=== PATIENT | female | born 1950 ===

== ENCOUNTER 2024-01-18 17:48 | Inpatient (IN) | payer MEDICARE, SELFPAY ==
[2024-01-18] VITALS (45 sets, daily range): BP systolic 62–155; BP diastolic 53–78; PULSE 75–111; RESP 17–29; TEMP 37.6–38.5; O2SAT 97–100; BMI 26.8
--- NOTE | ~2024-01-18 | XR_ITS ---
EXAMINATION: XR chest 1V portable Exam Date/Time: 01/18/2024 18:10 PHYSICIAN OFFICE NURSE HISTORY: shortness of breath Comparison: 10/10/2005. RESULT: Lines, tubes, and devices: Implanted device over the right hilum possibly representing vascular occl usion or bronchial occlusion devices. Lungs and pleura: Volume loss and hilar retraction on the right. Marked right apical pleural thicken ing. Minimal left apical pleural thickening. Patchy groundglass and reticular nodular right mid and l ower lung opacities. Senescent/emphysematous change. Bilateral costophrenic angle blunting. Cardiomediastinal silhouette: Stable. Other: No acute osseous or upper abdominal finding. IMPRESSION: Right mid and lower lung opacities, may represent infection in the appropriate clinical context. Small bilateral pleural effusions versus chronic pleural blunting. Reviewed, dictated and finalized at location [facility]. [facility] OFFICE NURSE
--- NOTE | 2024-01-18 17:56 | PC.NURSE ---
Nasal trumpet removed by RT.
--- NOTE | 2024-01-18 18:05 | ECG_ITS ---
Test Date: 2024-01-18 18:05:35 Measurements Intervals [place] Rate: 105 P: 63 MI: 118 QRS: 92 QRSD: 91 T: 48 QT: 375 QTc: 496 Interpretive Statements SINUS TACHYCARDIA RIGHT AXIS DEVIATION LOW QRS VOLTAGE IN PRECORDIAL LEADS BORDERLINE ST ABNORMALITY- INF/LAT LEADS BASELINE ARTIFACT- I, II, III, AVR, AVL, AVF, V1-V6 ABNORMAL ECG No previous ECG available for comparison Electronically Signed On 01-19-2024 06:55:17 [employer] by Librado Driscoll D.O.
[2024-01-18 18:24] LABS: Basophils Absolute Auto 0.1 K/mm3 (0.0-0.1); Basophils Percent Auto 0.4 % (0.2-1.2); Eosinophils Percent Auto 0.1 % (0-4.4); Hematocrit 42.7 % (37.0-47.0); Hemoglobin 13.1 g/dL (12.0-15.0); Immature Granulocyte Absolute 0.26 K/mm3 (0.00-0.031); Immature Granulocyte Percent A 1.3 % (0-0.5); Lymphocytes Absolute Auto 2.88 K/mm3 (0.9-3.2); Lymphocytes Percent Auto 14.4 % (18.3-44.2); Mean Corpuscular HGB Conc 30.7 g/dl (32-36); Mean Corpuscular Hemoglobin 32.5 pg (26-34); Mean Platelet Volume 11.4 fl (7.4-10.4); Monocytes Absolute Auto 2.1 K/mm3 (0.1-0.6); Monocytes Percent Auto 10.3 % (2.6-8.5); Neutrophils Absolute Auto 14.8 K/mm3 (1.3-6.7); Neutrophils Percent Auto 73.5 % (45.5-73.1); Platelet Count Result 200 k/mm3 (150-375); Red Blood Count 4.03 M/mm3 (4.2-5.4); Red Cell Distribution Width 12.2 % (11.5-14.5); White Blood Count 20.1 K/mm3 (4.5-10.0)
[2024-01-18 18:34] LABS: Lactic Acid Reflex 1.4 mmol/L (0.7-2.0)
--- NOTE | 2024-01-18 18:37 | PCRCNOTE ---
Dr. Caal states to wait 30-45 minutes after bipap is started to draw ABG.
[2024-01-18 18:46] LABS: NT Pro B Type Natriuretic Pept 399 pg/mL (19.9-100); Troponin I < 0.012 ng/mL (0.000-0.034)
[2024-01-18 18:48] LABS: INR 1.1; Prothrombin Time 15.1 Seconds (11.1-14.7)
[2024-01-18 18:49] LABS: Partial Thromboplastin Time 27.4 Seconds (22.3-36.8)
[2024-01-18 18:54] LABS: Alveolar/Arterial O2 Gradient 59.9 mmHg; Base Excess ABG 7.7 mEq/l (+/-2.0); Fractional Inspired Oxygen 30 %; HCO3 ABG 37.4 mEq/l (22.0-26.0); Oxygen Content ABG 16.3 %vol (16.0-22.0); PO2 ABG 59.8 mmHg (80.0-100.0); PO2 FiO2 Ratio Arterial Blood 1.99 %; Total Hemoglobin 13.3 g/dL (12.0-18.0)
[2024-01-18 18:57] LABS: pH ABG 7.286 (7.350-7.450)
[2024-01-18 18:58] LABS: PCO2 ABG 80.2 mmHg (35.0-45.0)
[2024-01-18 18:59] LABS: Oxygen Saturation ABG 86.5 % (95.0-100.0)
[2024-01-18 19:00] LABS: Device NON-INVASIVE VENT; Modified Allen's Test Pass; Oxyhemoglobin 87.4 % THb (90.0-100.0); Site Drawn LEFT RADIAL
[2024-01-18 19:06] LABS: Procalcitonin 0.3 ng/mL
[2024-01-18 19:06] LABS: Non-Invasive Expiratory Pressure 6 CMH2O; Non-Invasive Inspiratory Pressure 16 CMH2O; Non-Invasive Vent Rate 14 /MIN
--- NOTE | 2024-01-18 19:29 | PC.NURSE ---
Report received from KATE Romero. Assumed care of patient at this time.
[2024-01-18 19:34] LABS: Alanine Aminotransferase 11 U/L (6-35); Albumin Level 4.2 g/dL (3.5-5.1); Alkaline Phosphatase 85 U/L (38-126); Aspartate Amino Transferase 22 U/L (14-36); Bilirubin,Total 1.2 mg/dL (0.2-1.3); Blood Urea Nitrogen 27 mg/dL (7-17); Calcium 9.3 mg/dL (8.4-10.2); Carbon Dioxide > 40 mmol/L (22-30); Chloride 91 mmol/L (98-107); Estimated CRCL calculation 44 ml/min; Estimated Glomerular Filt Rate > 60; Glucose 141 mg/dL (65-110); Magnesium 2.1 mg/dL (1.6-2.3); Potassium 3.9 mmol/L (3.4-5.0); Sodium 139 mmol/L (137-145)
--- NOTE | 2024-01-18 19:34 | ED_ITS ---
HPI - General Adult General Chief complaint: Shortness of Breath/Dyspnea Stated complaint: DYSPNEA Time Seen by Provider: 01/18/24 17:56 History of Present Illness HPI narrative: patient is a 73-year-old female who presents emergency department with chief complaint of shortness of breath. The patient was brought in by EMS after she was found to be 70% on room air Saturation dropped to the 50s was given 2 DuoNebs and then apparently given epinephrine via nebulizer patient was placed on a non-rebreather and was 100% upon arrival the patient was immediately placed on BiPAP as she was having severe shortness of breath. Related Data Allergies Allergy/AdvReac Type Severity Reaction Status Date / Time morphine Allergy Unknown Verified 01/18/24 18:32 Review of Systems Review of Systems: A 10 system review of systems was completed on the patient and is negative except for what is stated in the HPI. Nursing and ancillary documentation was reviewed. PMFSH Comments COPD multiple lung infections, respiratory stents, fungal lung infections fo llowed at [facility] by pulmonology Exam Narrative: GENERAL: ill-appearing, well-nourished, and in moderate acute respiratory distress. HEAD: Normocephalic, atraumatic. EYES: PERRLA and EOMI. ENT: Nares clear, no rhinorrhea or epistaxis. Mucous membranes moist. NECK: Supple. CHEST: poor air movement to auscultation. moderaterespiratory distress. HEART: Regular rate and rhythm. No murmur heard. Normal peripheral pulses. ABDOMEN: Soft, nontender, nondistended, normal active bowel sounds. EXTREMITIES: Normal range of motion. No edema. SKIN: Warm, dry, no rash. NEURO: No focal deficits. Alert and oriented x3. PSYCH: Normal mood and affect. Course Vital Signs Vital signs: Vital Signs Pulse Rate 102 H 01/18/24 17:56 Respiratory Rate 20 01/18/24 17:56 Blood Pressure 155/78 H 01/18/24 17:56 Pulse Oximetry 100 01/18/24 17:56 Temperature 37.8 C H 01/18/24 18:08 Pulse Rate 101 H 01/18/24 19:16 Respiratory Rate 20 01/18/24 19:16 Blood Pressure 112/58 L 01/18/24 19:16 Pulse Oximetry 98 01/18/24 19:16 Oxygen Delivery BiPAP 01/18/24 18:14 Medical Decision Making MDM Narrative Medical decision making narrative: differential diagnosis includes pneumonia, COPD exacerbation, hypercapnic respiratory failure laboratory studies were obtained showed white count of 20.1 hemoglobin was 13.1 ABG showed a pH of 7.286 pCO2 was 80 PO2 was 59.8 with a 86.5% oxygen saturation electrolytes showed a CO2 of greater than 40 lactic acid was 1.4 troponin was less than 0.012 BNP was 399 procalcitonin 0.3 COVID flu and RSV are currently pending. Chest x-ray showed right middle and lower lung opacities represent probable infection small bilateral pleural effusions versus chronic pleural blunting the case was discussed with the MICU nurse practitioner on-call who accepted the patient for Dr. Chapa. there is currently a wait list the patient was started on vancomycin cefepime and Levaquin Vital Signs Vital Signs: Vital Signs Pulse Rate 102 H 01/18/24 17:56 Respiratory Rate 20 01/18/24 17:56 Blood Pressure 155/78 H 01/18/24 17:56 Pulse Oximetry 100 01/18/24 17:56 Temperature 37.8 C H 01/18/24 18:08 Pulse Rate 101 H 01/18/24 19:16 Respiratory Rate 20 01/18/24 19:16 Blood Pressure 112/58 L 01/18/24 19:16 Pulse Oximetry 98 01/18/24 19:16 Oxygen Delivery BiPAP 01/18/24 18:14 Lab Data 01/18/24 18:19 01/18/24 18:19 Labs: Lab Results 01/18/24 01/18/24 01/18/24 Range/Units 18:18 18:19 18:19 WBC 20.1 H (4.5-10.0) K/mm3 RBC 4.03 L (4.2-5.4) M/mm3 Hgb 13.1 (12.0-15.0) g/dL Hct 42.7 (37.0-47.0) % MCV 106.0 H (80-100) fl MCH 32.5 (26-34) pg MCHC 30.7 L (32-36) g/dl RDW 12.2 (11.5-14.5) % Plt Count 200 (150-375) k/mm3 MPV 11.4 H (7.4-10.4) fl Immature Gran % (Auto) 1.3 H (0-0.5) % Neut % (Auto) 73.5 H (45.5-73.1) % Lymph % (Auto) 14.4 L (18.3-44.2) % [place] % (Auto) 10.3 H (2.6-8.5) % Eos % (Auto) 0.1 (0-4.4) % Baso % (Auto) 0.4 (0.2-1.2) % Lymph # (Auto) 2.88 (0.9-3.2) K/mm3 [place] # (Auto) 2.1 H (0.1-0.6) K/mm3 Eos # (Auto) 0.0 (0-0.3) K/mm3 Baso # (Auto) 0.1 (0.0-0.1) K/mm3 Abs Immat Gran (auto) 0.26 H (0.00-0.031) K/mm3 Absolute Neuts (auto) 14.8 H (1.3-6.7) K/mm3 Absolute Nucleated RBC 0.000 (0.0-0.012) K/mm3 Nucleated RBC % 0.0 (0.0-0.2) % PT 15.1 H (11.1-14.7) Seconds INR 1.1 APTT 27.4 (22.3-36.8) Seconds Expiratory Pressure CMH2O Inspiratory Pressure CMH2O Sodium Cancelled 139 Potassium Cancelled Chloride Carbon Dioxide Anion Gap BUN Creatinine Estim Creat Clear Calc Estimated GFR Glucose Lactic Acid 1.4 (0.7-2.0) mmol/L Calcium Magnesium (1.6-2.3) mg/dL Total Bilirubin AST ALT Alkaline Phosphatase Troponin I (0.000-0.034) ng/mL NT-Pro-B Natriuret Pep (19.9-100) pg/mL Total Protein Albumin Procalcitonin ng/mL Influenza A (RT-PCR) (Negative) Influenza B (RT-PCR) (Negative) RSV (RT-PCR) (Negative) SARS-CoV-2 RNA (RT-PCR) (Negative) 01/18/24 01/18/24 01/18/24 Range/Units 18:19 18:19 18:19 WBC (4.5-10.0) K/mm3 RBC (4.2-5.4) M/mm3 Hgb (12.0-15.0) g/dL Hct (37.0-47.0) % MCV (80-100) fl MCH (26-34) pg MCHC (32-36) g/dl RDW (11.5-14.5) % Plt Count (150-375) k/mm3 MPV (7.4-10.4) fl Immature Gran % (Auto) (0-0.5) % Neut % (Auto) (45.5-73.1) % Lymph % (Auto) (18.3-44.2) % [place] % (Auto) (2.6-8.5) % Eos % (Auto) (0-4.4) % Baso % (Auto) (0.2-1.2) % Lymph # (Auto) (0.9-3.2) K/mm3 [place] # (Auto) (0.1-0.6) K/mm3 Eos # (Auto) (0-0.3) K/mm3 Baso # (Auto) (0.0-0.1) K/mm3 Abs Immat Gran (auto) (0.00-0.031) K/mm3 Absolute Neuts (auto) (1.3-6.7) K/mm3 Absolute Nucleated RBC (0.0-0.012) K/mm3 Nucleated RBC % (0.0-0.2) % PT (11.1-14.7) Seconds INR APTT (22.3-36.8) Seconds Expiratory Pressure CMH2O Inspiratory Pressure CMH2O Sodium Potassium 3.9 Chloride Cancelled 91 L Carbon Dioxide Cancelled > 40 H Anion Gap Cancelled BUN Creatinine Estim Creat Clear Calc Estimated GFR Glucose Lactic Acid (0.7-2.0) mmol/L Calcium Magnesium (1.6-2.3) mg/dL Total Bilirubin AST ALT Alkaline Phosphatase Troponin I (0.000-0.034) ng/mL NT-Pro-B Natriuret Pep (19.9-100) pg/mL Total Protein Albumin Procalcitonin ng/mL Influenza A (RT-PCR) (Negative) Influenza B (RT-PCR) (Negative) RSV (RT-PCR) (Negative) SARS-CoV-2 RNA (RT-PCR) (Negative) 01/18/24 01/18/24 01/18/24 Range/Units 18:19 18:19 18:19 WBC (4.5-10.0) K/mm3 RBC (4.2-5.4) M/mm3 Hgb (12.0-15.0) g/dL Hct (37.0-47.0) % MCV (80-100) fl MCH (26-34) pg MCHC (32-36) g/dl RDW (11.5-14.5) % Plt Count (150-375) k/mm3 MPV (7.4-10.4) fl Immature Gran % (Auto) (0-0.5) % Neut % (Auto) (45.5-73.1) % Lymph % (Auto) (18.3-44.2) % [place] % (Auto) (2.6-8.5) % Eos % (Auto) (0-4.4) % Baso % (Auto) (0.2-1.2) % Lymph # (Auto) (0.9-3.2) K/mm3 [place] # (Auto) (0.1-0.6) K/mm3 Eos # (Auto) (0-0.3) K/mm3 Baso # (Auto) (0.0-0.1) K/mm3 Abs Immat Gran (auto) (0.00-0.031) K/mm3 Absolute Neuts (auto) (1.3-6.7) K/mm3 Absolute Nucleated RBC (0.0-0.012) K/mm3 Nucleated RBC % (0.0-0.2) % PT (11.1-14.7) Seconds INR APTT (22.3-36.8) Seconds Expiratory Pressure CMH2O Inspiratory Pressure CMH2O Sodium Potassium Chloride Carbon Dioxide Anion Gap BUN Cancelled 27 H Creatinine Cancelled 0.90 Estim Creat Clear Calc Cancelled Estimated GFR Glucose Lactic Acid (0.7-2.0) mmol/L Calcium Magnesium (1.6-2.3) mg/dL Total Bilirubin AST ALT Alkaline Phosphatase Troponin I (0.000-0.034) ng/mL NT-Pro-B Natriuret Pep (19.9-100) pg/mL Total Protein Albumin Procalcitonin ng/mL Influenza A (RT-PCR) (Negative) Influenza B (RT-PCR) (Negative) RSV (RT-PCR) (Negative) SARS-CoV-2 RNA (RT-PCR) (Negative) 01/18/24 01/18/24 01/18/24 Range/Units 18:19 18:19 18:19 WBC (4.5-10.0) K/mm3 RBC (4.2-5.4) M/mm3 Hgb (12.0-15.0) g/dL Hct (37.0-47.0) % MCV (80-100) fl MCH (26-34) pg MCHC (32-36) g/dl RDW (11.5-14.5) % Plt Count (150-375) k/mm3 MPV (7.4-10.4) fl Immature Gran % (Auto) (0-0.5) % Neut % (Auto) (45.5-73.1) % Lymph % (Auto) (18.3-44.2) % [place] % (Auto) (2.6-8.5) % Eos % (Auto) (0-4.4) % Baso % (Auto) (0.2-1.2) % Lymph # (Auto) (0.9-3.2) K/mm3 [place] # (Auto) (0.1-0.6) K/mm3 Eos # (Auto) (0-0.3) K/mm3 Baso # (Auto) (0.0-0.1) K/mm3 Abs Immat Gran (auto) (0.00-0.031) K/mm3 Absolute Neuts (auto) (1.3-6.7) K/mm3 Absolute Nucleated RBC (0.0-0.012) K/mm3 Nucleated RBC % (0.0-0.2) % PT (11.1-14.7) Seconds INR APTT (22.3-36.8) Seconds Expiratory Pressure CMH2O Inspiratory Pressure CMH2O Sodium Potassium Chloride Carbon Dioxide Anion Gap BUN Creatinine Estim Creat Clear Calc 44 Estimated GFR Cancelled > 60 Glucose Cancelled 141 H Lactic Acid (0.7-2.0) mmol/L Calcium Cancelled Magnesium (1.6-2.3) mg/dL Total Bilirubin AST ALT Alkaline Phosphatase Troponin I (0.000-0.034) ng/mL NT-Pro-B Natriuret Pep (19.9-100) pg/mL Total Protein Albumin Procalcitonin ng/mL Influenza A (RT-PCR) (Negative) Influenza B (RT-PCR) (Negative) RSV (RT-PCR) (Negative) SARS-CoV-2 RNA (RT-PCR) (Negative) 01/18/24 01/18/24 01/18/24 Range/Units 18:19 18:19 18:19 WBC (4.5-10.0) K/mm3 RBC (4.2-5.4) M/mm3 Hgb (12.0-15.0) g/dL Hct (37.0-47.0) % MCV (80-100) fl MCH (26-34) pg MCHC (32-36) g/dl RDW (11.5-14.5) % Plt Count (150-375) k/mm3 MPV (7.4-10.4) fl Immature Gran % (Auto) (0-0.5) % Neut % (Auto) (45.5-73.1) % Lymph % (Auto) (18.3-44.2) % [place] % (Auto) (2.6-8.5) % Eos % (Auto) (0-4.4) % Baso % (Auto) (0.2-1.2) % Lymph # (Auto) (0.9-3.2) K/mm3 [place] # (Auto) (0.1-0.6) K/mm3 Eos # (Auto) (0-0.3) K/mm3 Baso # (Auto) (0.0-0.1) K/mm3 Abs Immat Gran (auto) (0.00-0.031) K/mm3 Absolute Neuts (auto) (1.3-6.7) K/mm3 Absolute Nucleated RBC (0.0-0.012) K/mm3 Nucleated RBC % (0.0-0.2) % PT (11.1-14.7) Seconds INR APTT (22.3-36.8) Seconds Expiratory Pressure CMH2O Inspiratory Pressure CMH2O Sodium Potassium Chloride Carbon Dioxide Anion Gap BUN Creatinine Estim Creat Clear Calc Estimated GFR Glucose Lactic Acid (0.7-2.0) mmol/L Calcium 9.3 Magnesium 2.1 (1.6-2.3) mg/dL Total Bilirubin Cancelled 1.2 AST Cancelled 22 ALT Cancelled Alkaline Phosphatase Troponin I (0.000-0.034) ng/mL NT-Pro-B Natriuret Pep (19.9-100) pg/mL Total Protein Albumin Procalcitonin ng/mL Influenza A (RT-PCR) (Negative) Influenza B (RT-PCR) (Negative) RSV (RT-PCR) (Negative) SARS-CoV-2 RNA (RT-PCR) (Negative) 01/18/24 01/18/24 01/18/24 Range/Units 18:19 18:19 18:19 WBC (4.5-10.0) K/mm3 RBC (4.2-5.4) M/mm3 Hgb (12.0-15.0) g/dL Hct (37.0-47.0) % MCV (80-100) fl MCH (26-34) pg MCHC (32-36) g/dl RDW (11.5-14.5) % Plt Count (150-375) k/mm3 MPV (7.4-10.4) fl Immature Gran % (Auto) (0-0.5) % Neut % (Auto) (45.5-73.1) % Lymph % (Auto) (18.3-44.2) % [place] % (Auto) (2.6-8.5) % Eos % (Auto) (0-4.4) % Baso % (Auto) (0.2-1.2) % Lymph # (Auto) (0.9-3.2) K/mm3 [place] # (Auto) (0.1-0.6) K/mm3 Eos # (Auto) (0-0.3) K/mm3 Baso # (Auto) (0.0-0.1) K/mm3 Abs Immat Gran (auto) (0.00-0.031) K/mm3 Absolute Neuts (auto) (1.3-6.7) K/mm3 Absolute Nucleated RBC (0.0-0.012) K/mm3 Nucleated RBC % (0.0-0.2) % PT (11.1-14.7) Seconds INR APTT (22.3-36.8) Seconds Expiratory Pressure CMH2O Inspiratory Pressure CMH2O Sodium Potassium Chloride Carbon Dioxide Anion Gap BUN Creatinine Estim Creat Clear Calc Estimated GFR Glucose Lactic Acid (0.7-2.0) mmol/L Calcium Magnesium (1.6-2.3) mg/dL Total Bilirubin AST ALT 11 Alkaline Phosphatase Cancelled 85 Troponin I < 0.012 (0.000-0.034) ng/mL NT-Pro-B Natriuret Pep 399 H (19.9-100) pg/mL Total Protein Cancelled 8.0 Albumin Cancelled Procalcitonin ng/mL Influenza A (RT-PCR) (Negative) Influenza B (RT-PCR) (Negative) RSV (RT-PCR) (Negative) SARS-CoV-2 RNA (RT-PCR) (Negative) 01/18/24 01/18/24 01/18/24 Range/Units 18:19 18:50 18:58 WBC (4.5-10.0) K/mm3 RBC (4.2-5.4) M/mm3 Hgb (12.0-15.0) g/dL Hct (37.0-47.0) % MCV (80-100) fl MCH (26-34) pg MCHC (32-36) g/dl RDW (11.5-14.5) % Plt Count (150-375) k/mm3 MPV (7.4-10.4) fl Immature Gran % (Auto) (0-0.5) % Neut % (Auto) (45.5-73.1) % Lymph % (Auto) (18.3-44.2) % [place] % (Auto) (2.6-8.5) % Eos % (Auto) (0-4.4) % Baso % (Auto) (0.2-1.2) % Lymph # (Auto) (0.9-3.2) K/mm3 [place] # (Auto) (0.1-0.6) K/mm3 Eos # (Auto) (0-0.3) K/mm3 Baso # (Auto) (0.0-0.1) K/mm3 Abs Immat Gran (auto) (0.00-0.031) K/mm3 Absolute Neuts (auto) (1.3-6.7) K/mm3 Absolute Nucleated RBC (0.0-0.012) K/mm3 Nucleated RBC % (0.0-0.2) % PT (11.1-14.7) Seconds INR APTT (22.3-36.8) Seconds Expiratory Pressure 6 CMH2O Inspiratory Pressure 16 CMH2O Sodium Potassium Chloride Carbon Dioxide Anion Gap BUN Creatinine Estim Creat Clear Calc Estimated GFR Glucose Lactic Acid (0.7-2.0) mmol/L Calcium Magnesium (1.6-2.3) mg/dL Total Bilirubin AST ALT Alkaline Phosphatase Troponin I (0.000-0.034) ng/mL NT-Pro-B Natriuret Pep (19.9-100) pg/mL Total Protein Albumin 4.2 Procalcitonin 0.3 ng/mL Influenza A (RT-PCR) Negative (Negative) Influenza B (RT-PCR) Negative (Negative) RSV (RT-PCR) Negative (Negative) SARS-CoV-2 RNA (RT-PCR) Negative (Negative) ABG Data ABG results: 01/18/24 18:50 Puncture Site Left radial ABG pH 7.286 L* ABG pCO2 80.2 H* ABG pO2 59.8 L ABG PO2/FiO2 Ratio 1.99 ABG HCO3 37.4 H ABG O2 Saturation 86.5 L* ABG O2 Content 16.3 ABG Base Excess 7.7 A-a Gradient 59.9 Oxyhemoglobin 87.4 L* Total Hemoglobin 13.3 O2 Delivery Device Non-invasive vent O2 Liters/Min 0.0 Vent Rate 14 FiO2 30 Critical Care Time Critical Care Time Critical Care Time: Yes Total Critical Care Time: 30 Discharge Plan Discharge Clinical Impression: Acute hypercapnic respiratory failure, Pneumonia, Leukocytosis Patient Disposition: Acute Care Hospital Condition: Guarded Prognosis Follow-up/Referrals: UNKNOWN,DOCTOR [Primary Care Provider] - Time of Disposition: 19:38
[2024-01-18 19:40] LABS: Influenza A QL RT-PCR Negative (Negative); Influenza B QL RT-PCR Negative (Negative); RSV RNA, RT-PCR Negative (Negative); SARS-CoV-2 RNA PCR Negative (Negative)
[2024-01-18] MEDS: CEFEPIME 2 GM/NS 50 ML 2 GM/50 ML BAG IVPB (19:50)
--- NOTE | 2024-01-18 19:59 | PC.NURSE ---
spoke to [facility] transfer center for a triage assessment at this time. they informed this nurse she is on a medical ICU waitlist
[2024-01-18] MEDS: levoFLOXacin 750 MG/D5W 150 ML 750 MG/150 ML BAG 100 MG IVPB (20:02)
[2024-01-18] MEDS: ACETAMINOPHEN 325 MG SUPPOSITORY 975 MG RECTAL (20:05)
--- NOTE | 2024-01-18 20:05 | P.HP_ITS ---
H&P: HPI History of Present Illness Date/Time: 01/18/24 20:05 Chief Complaint: ams Narrative: This is a 73-year-old female with past medical history significant for COPD/emphysema, chronic hypoxic hypercarbic respiratory failure, chronic supplemental oxygen at home 2 L, at all times, history of aspergillosis. Patient was brought to the emergency room due to altered mental status history has been obtained from sister and daughter who are present at bedside they noticed changes in her mentation in the last 3 days or so when patient started confusing date according to daughter patient is supposed to wear a matching at nighttime which they are uncertain which type but patient has not used it because of poor tolerance. Upon arrival to emergency room patient was placed on BiPAP preliminary workup was significant for ABG pH is 7.2 pCO2 80 PO2 59 a chest x-ray was significant for lung opacities. Patient receives all her care at [place] and a bed has been requested we are currently awaiting bed at [place] for patient. 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 RESULT: Lines, tubes, and devices: Implanted device over the right hilum possibly representing vascular occlusion or bronchial occlusion devices. Lungs and pleura: Volume loss and hilar retraction on the right. Marked right apical pleural thickening. Minimal left apical pleural thickening. Patchy groundglass and reticular nodular right mid and lower lung opacities. Senescent/emphysematous change. Bilateral costophrenic angle blunting. Cardiomediastinal silhouette: Stable. Other: No acute osseous or upper abdominal finding. IMPRESSION: Right mid and lower lung opacities, may represent infection in the appropriate clinical context. Small bilateral pleural effusions versus chronic pleural blunting. Review of Systems Review of Systems: ROS unobtainable: Yes unobtainable due to mental status (obtundation/lethargy) and other (on BiPAP) [facility] Family History Family History (Updated 01/18/24 @ 22:29 by Broderick King RN) Father Throat cancer Sibling COPD (chronic obstructive pulmonary disease) Sibling Bladder cancer Social History Social History Smoking status: Former smoker Alcohol intake: never Substance use: never Do You Feel Safe in your Home?: Yes Lack of Transportation: No Lack of Food: Never True Current Housing: I Have Housing Concerned About Future Housing: No Difficulty Paying Gas/Electric Bills: No Difficulty Paying for Meds: No Currently Unemployed: No Education: High School Diploma/GED Difficulty w/ Childcare or Family Care: No Spiritual care concerns: No Meds Home Medications and Allergies Home Medications Medication Instructions Recorded Confirmed Type albuterol sulfate 0.63 mg/3 mL 0.63 mg inhalation DAILY 01/18/24 01/18/24 History solution for nebulization calcitriol 0.25 mcg capsule 0.25 mcg PO DAILY 01/18/24 01/18/24 History ergocalciferol (vitamin D2) 1,250 1,250 mcg PO WEEKLY 01/18/24 01/18/24 History mcg (50,000 unit) capsule fluticasone fur. 200 mcg-umeclid 1 inh inhalation DAILY 01/18/24 01/18/24 History 62.5 mcg-vilant 25 mcg inhalat.powder (Trelegy Ellipta) furosemide 20 mg tablet 20 mg PO DAILY 01/18/24 01/18/24 History hydrocodone 5 mg-acetaminophen 325 1 tablet PO Q8H PRN Moderate Pain 01/18/24 01/18/24 History mg tablet (Scale Score 5-6) levalbuterol tartrate 45 2 puff inhalation Q6H PRN 01/18/24 01/18/24 History mcg/actuation aerosol inhaler Shortness Of Breath Or Wheezing lisinopril 20 mg tablet 20 mg PO DAILY 01/18/24 01/18/24 History meclizine 25 mg tablet 25 mg PO BID 01/18/24 01/18/24 History pramipexole 0.5 mg tablet 0.5 mg PO DAILY 01/18/24 01/18/24 History prednisolone acetate 1 % eye 1 drp RIGHT EYE QID 01/18/24 01/18/24 History drops,suspension Allergies Allergy/AdvReac Type Severity Reaction Status Date / Time morphine Allergy Unknown Verified 01/18/24 18:32 Vital Signs Vital Signs - 24 hr 01/18/24 17:56 01/18/24 18:08 01/18/24 18:14 Temperature 100.1 F H Pulse Rate 102 H Respiratory Rate 20 Blood Pressure 155/78 H Pulse Oximetry 100 Oxygen Delivery BiPAP 01/18/24 18:15 01/18/24 18:00 01/18/24 19:16 Temperature Pulse Rate 111 H 105 H 101 H Respiratory Rate 24 H 24 H 20 Blood Pressure 132/57 L 112/58 L Pulse Oximetry 97 100 98 Oxygen Delivery BiPAP 01/18/24 20:01 Temperature 101.3 F H Pulse Rate 106 H Respiratory Rate 23 H Blood Pressure 108/56 L Pulse Oximetry 97 Oxygen Delivery Exam Narrative: lying in stretcher Const: General: comfortable, no acute distress, well developed, ill appearing, average body habitus and other (on BiPAP) Nutritional Appearance: average body habitus Orientation/consciousness: patient obtunded and lethargic HENMT: Head: normal to inspection, normocephalic and atraumatic Ears: hearing grossly normal bilaterally Face/Nose/Sinus: normal facial exam Face and sinus: normal facial exam Eyes: General: appearance normal, both eyes and all related structures Pupils: Equal, round and reactive pupils present EOM: EOMs intact bilaterally Neck: Neck: full ROM, no lymphadenopathy and no JVD Thyroid: thyroid normal Lymphatic: no lymphadenopathy noted Resp: Effort & Inspection: normal respiratory effort and other (on BiPAP) Auscultation: wheezes (isolated) and diminished lung sounds Cardio: Jugular venous distension: no JVD Rate: regular rate Rhythm: regular rhythm Heart sounds: S1 normal heart sound present and S2 normal heart sound present GI: GI Palp: Yes Soft to palpation and Yes No hepatosplenomegaly present : General: Yes deferred Skin: Rashes: no rashes Wounds: no wounds Neuro: General: no focal motor deficits, CN's II-XI intact bilaterally, patient obtunded and Unable to assess gait Cranial nerves: Yes CN's II-XII intact bilaterally and Yes Equal, round and reactive pupils present Cognition (Neuro): abnormal cognition (obtundation) Speech: normal speech Gait exam (Neuro): Unable to assess gait Motor exam (neuro): 5/5 motor strength present throughout Extrem: General: normal to inspection, full ROM, no joint enlargement and no pedal edema Other: trace edema H&P: Results Labs Labs: Short CBC 01/18/24 Range/Units 18:19 WBC 20.1 H (4.5-10.0) K/mm3 Hgb 13.1 (12.0-15.0) g/dL Hct 42.7 (37.0-47.0) % Plt Count 200 (150-375) k/mm3 BMP 01/18/24 01/18/24 01/18/24 18:19 18:19 18:19 Sodium Cancelled 139 Potassium Cancelled 3.9 Chloride Cancelled Carbon Dioxide BUN Creatinine Glucose Calcium 01/18/24 01/18/24 01/18/24 18:19 18:19 18:19 Sodium Potassium Chloride 91 L Carbon Dioxide Cancelled > 40 H BUN Cancelled 27 H Creatinine Cancelled Glucose Calcium 01/18/24 01/18/24 01/18/24 18:19 18:19 18:19 Sodium Potassium Chloride Carbon Dioxide BUN Creatinine 0.90 Glucose Cancelled 141 H Calcium Cancelled 9.3 Cardiac Enzymes 01/18/24 Range/Units 18:19 Troponin I < 0.012 (0.000-0.034) ng/mL Liver Function 01/18/24 01/18/24 01/18/24 Range/Units 18:19 18:19 18:19 Total Bilirubin Cancelled 1.2 AST Cancelled 22 ALT Cancelled Alkaline Phosphatase Albumin 01/18/24 01/18/24 01/18/24 Range/Units 18:19 18:19 18:19 Total Bilirubin AST ALT 11 Alkaline Phosphatase Cancelled 85 Albumin Cancelled 4.2 Assessment and Plan Assessment and plan (1) Acute and chronic respiratory failure with hypercapnia: Code(s): J96.22 - Acute and chronic respiratory failure with hypercapnia Status: Acute Assessment and Plan: Admit to ICU currently on BiPAP awaiting bed at [place] (2) Pneumonia: Code(s): J18.9 - Pneumonia, unspecified organism Status: Acute Assessment and Plan: patient has been started on antibiotic cultures in progress (3) AMS (altered mental status): Code(s): R41.82 - Altered mental status, unspecified Status: Acute Assessment and Plan: likely to be encephalopathy secondary to increased levels of CO2 improving Hospitalist MIPS Advance Care Plan I have confirmed that the patient's Advanced Care Plan is present, code status is documented, or surrogate decision maker is listed in patient medical record.: Yes Medication Reconciliation I have utilized all available resources to obtain, update and review the patients current medications (includes all prescriptions, OTC, herbals, cannabis, and nutritional supplements).: Yes
[2024-01-18 20:27] LABS: Add Urine Microscopic? YES; Appearance Urine Cloudy (Clear); Bacteria Urine None Seen /hpf; Bilirubin Urine 1+ (Negative); Blood Urine 3+ (Negative); Color Urine Dark Yellow (Yellow); Glucose Urine UA Trace mg/dL (Negative); Hyaline Casts Urine Present /lpf; Ketones Urine Trace mg/dL (Negative); Leukocyte Esterase Ur Negative LEU/UL (Negative); Nitrate Urine Negative (Negative); Non Pathogenic Casts >20; Protein Urine 2+ mg/dL (Negative); Specific Grav Ur 1.022 (1.001-1.035); Squamous Epithelial Cell Urine Occasional /hpf (Few); WBC Urine 0-5 /hpf (0-3)
--- NOTE | 2024-01-18 21:00 | PC.NURSE ---
Received report from ED RN. [id number] RT for bipap
[2024-01-18] MEDS: methylPREDNISolone SOD SUCC 125 MG VIAL IV PUSH (21:09)
[2024-01-18 21:18] LABS: MRSA (PCR) NOT DETECTED (NOT DETECTE)
--- NOTE | 2024-01-18 21:21 | PC.NURSE ---
Called RT to assist with moving patient, he states I'll be there in a bit.
[2024-01-18] MEDS: SODIUM CHLORIDE 0.9% IV 1,000 ML 999 ML IV CONT (21:30)
[2024-01-18] MEDS: VANCOMYCIN 1,750 MG/NS 500 ML 1,750 MG/500 ML BAG 250 MG IVPB (21:33)
[2024-01-19] VITALS (47 sets, daily range): BP systolic 64–131; BP diastolic 39–82; PULSE 62–91; RESP 15–26; TEMP 36.5–37.3; O2SAT 90–100
[2024-01-19 00:05] LABS: Troponin I 0.026 ng/mL (0.000-0.034)
--- NOTE | 2024-01-19 00:53 | PC.NURSE ---
PLR shows change of 14.9 %; charted as 15% due to charting not allowing decimals.
[2024-01-19] MEDS: SODIUM CHLORIDE 0.9% IV 250 ML IV CONT (01:14)
[2024-01-19] MEDS: IPRATROPIUM 0.5 MG/ALBUTEROL SULFATE 2.5 MG AMPUL.NEB 3 ML INHALATION ×4 (02:04→20:12)
--- NOTE | 2024-01-19 02:24 | PC.NURSE ---
01/19/[address] Luna made aware that patient has been having soft blood pressures in the 89-90 systolic. Originally 2 1L NS boluses were ordered but the second was discontinued. [facility] shows patient to be 14.9% responsive. 250ml bolus ordered.
--- NOTE | 2024-01-19 02:26 | PC.NURSE ---
01/19/24 0215 Patient blood pressure in the 70s. Dr Luna made aware and a 1L NS bolus is ordered.
[2024-01-19] MEDS: SODIUM CHLORIDE 0.9% IV 1,000 ML 999 ML IV CONT (02:28)
--- NOTE | 2024-01-19 03:11 | ADMGEN ---
This patient, Jade Johnson, was admitted to Intensive Care Unit-5 on 01/18/24 at 2150. Patient/family oriented to hospital policies and general routines including ID bracelet, bed and alarms, visiting hours, pain management, procedures, bathroom and other care routines, personal items, smoking policy, room service/diet, and visiting hours. Information on how to activate the Rapid Response Team has been discussed. Patient/Family are encouraged to report perceived risks to care and to ask questions if they do not understand what they are told or what they should do.
--- NOTE | 2024-01-19 04:01 | PC.NURSE ---
01/19/24 0320 woke patient up to ask if she would consent to a central line if needed. Patient states if she is awake and sitting up her blood pressure will improve; her blood pressure drops with sleep. Fully awake patients BP is 120/82.
[2024-01-19 04:16] LABS: Estimated CRCL calculation 49 ml/min; Estimated Glomerular Filt Rate > 60
[2024-01-19] MEDS: methylPREDNISolone SOD SUCC 125 MG VIAL 60 MG IV PUSH ×3 (05:33→20:41)
[2024-01-19 06:22] LABS: Alveolar/Arterial O2 Gradient 64.4 mmHg; Base Excess ABG 5.9 mEq/l (+/-2.0); Carboxyhemoglobin 1.1 % THb (0-2.0); Fractional Inspired Oxygen 50 %; HCO3 ABG 40.2 mEq/l (22.0-26.0); Methemoglobin ABG 0.2 %THb (0-1.5); Oxygen Content ABG 22.8 %vol (16.0-22.0); Oxygen Saturation ABG 98.3 % (95.0-100.0); Oxyhemoglobin 97.9 % THb (90.0-100.0); PO2 ABG 159.7 mmHg (80.0-100.0); PO2 FiO2 Ratio Arterial Blood 3.19 %; Reduced Hemoglobin 0.8 %THb (0-5.0); Total Hemoglobin 16.4 g/dL (12.0-18.0)
[2024-01-19 06:27] LABS: Device BIPAP; Modified Allen's Test Pass; PCO2 ABG 117.7 mmHg (35.0-45.0); Site Drawn LEFT RADIAL; pH ABG 7.151 (7.350-7.450)
[2024-01-19 06:28] LABS: Expiratory Pressure 6 cmH2O; Inspiratory Pressure 16 cmH2O
--- NOTE | 2024-01-19 06:52 | PC.NURSE ---
Patient aware of abnormal ABG and doctors recommendation to be intubated. Bipap changes were made to bipap. At this time the patient id refusing to be intubated. She spoke with her daughter and both agree she should not be intubated at this time ad needs to speak to her sister. Patient is alert and oriented x3; repeats she does not want to intubation but she also doesn't want to ear the bipap. Patient wants a cup of coffee. Explained to patient she can be a DNI if she chooses to but must wear the bipap-otherwise we do not have any options and she could . Sister Elvira is coming in to discuss intubation with patient.
[2024-01-19 08:26] LABS: Alveolar/Arterial O2 Gradient 52.2 mmHg; Base Excess ABG 2.5 mEq/l (+/-2.0); Carboxyhemoglobin 1.4 % THb (0-2.0); Fractional Inspired Oxygen 30 %; HCO3 ABG 32.6 mEq/l (22.0-26.0); Methemoglobin ABG 0.1 %THb (0-1.5); Oxygen Saturation ABG 91.3 % (95.0-100.0); Oxyhemoglobin 93.3 % THb (90.0-100.0); PO2 ABG 72.2 mmHg (80.0-100.0); PO2 FiO2 Ratio Arterial Blood 2.41 %; Reduced Hemoglobin 5.2 %THb (0-5.0)
[2024-01-19 08:28] LABS: PCO2 ABG 76.2 mmHg (35.0-45.0); pH ABG 7.249 (7.350-7.450)
[2024-01-19 08:29] LABS: Device BIPAP; Modified Allen's Test Pass; Site Drawn RIGHT RADIAL
[2024-01-19 08:30] LABS: Expiratory Pressure 6 cmH2O; Inspiratory Pressure 18 cmH2O
[2024-01-19] MEDS: ENOXAPARIN 40 MG/0.4 ML SYRINGE SUB-Q (09:58)
[2024-01-19] MEDS: CEFEPIME 2 GM/NS 50 ML 2 GM/50 ML BAG IVPB ×2 (09:58→20:40)
[2024-01-19] MEDS: PANTOPRAZOLE SODIUM IV 40 MG VIAL IV PUSH (09:58)
--- NOTE | 2024-01-19 10:34 | P.CONIN_ITS ---
Assessment and Plan Assessment and plan (1) Acute and chronic respiratory failure with hypercapnia: Code(s): J96.22 - Acute and chronic respiratory failure with hypercapnia Status: Acute Assessment and Plan: patient has history of severe COPD and now presented with what appears to be COPD exacerbation with possible pneumonia. ABG shows hypercarbia and hypoxia ABG done this morning showed worsening with worsening CO2. I changed her IPAP to 18 and decrease the FiO2 and ABG was repeated which showed improvement. Patient otherwise is alert awake oriented and in no respiratory distress with good tidal volumes. Continue BiPAP at this time. If worsens patient may need intubation I have discussed this in detail the patient she is reluctant to get intubated but does not want to be DNI. She believes that if she goes on a ventilator she will never come off.. I have explained to her that we will try our best with BiPAP and treatment to avoid intubation but depending on her clinical condition as she deteriorated she will need intubation and mechanical ventilation . Meanwhile patient awaits transfer to [facility] continue treatment for COPD with steroids, bronchodilators BiPAP settings reviewed patient presented with elevated WBC but patient has been on steroids in the past. Patient also has cough with yellow sputum low procalcitonin level. Chest x-ray suggest infiltrates. Patient will be treated empirically for pneumonia at this time. Continue vancomycin cefepime and Levaquin to cover for healthcare associated pneumonia as patient has had history with of infection with drug-r esistant bacteria as per ER physician's review of records from outside facility. Blood cultures have been sent and are pending (2) Pneumonia: Code(s): J18.9 - Pneumonia, unspecified organism Status: Acute Assessment and Plan: see above (3) COPD with exacerbation: Code(s): J44.1 - Chronic obstructive pulmonary disease with (acute) exacerbation Status: Acute Assessment and Plan: see above Plan DVT prophylaxis - Lovenox Stress ulcer prophylaxis - PPI Nutrition - npo Code Status - Full Code I had long discussion with patient and her sister at bedside. I explained her patient's current status including respiratory failure and ABG results. I explained to her that we will continue with BiPAP at this time but she may need intubation if she deteriorates. Patient continues to states that she does not want intubation but she also wants to be full code. After long discussion we reached agreement the patient will continue on BiPAP at this time since ABGs improved but in case she deteriorates she is full code and will proceed with intubation if needed. Total Critical Care Time - 40 minutes Due to a high probability of clinically significant, life threatening deterioration, the patient required my highest level of preparedness to intervene emergently and I personally spent this critical care time directly and personally managing the patient. This critical care time included obtaining a history; examining the patient; pulse oximetry; ordering and review of studies; arranging urgent treatment with development of a management plan; evaluation of patient's response to treatment; frequent reassessment; and discussions with other providers. It was exclusive of separately billable procedures and treating other patients and teaching time. Please see Assessment and Plan section and the rest of the note for further information on patient assessment and treatment [facility] Supervisor Consult Note Consult date: 01/19/24 Reason for consult: acute on chronic respiratory failure HPI: Jade Johnson is a 73 year old female with past medical history of COPD who is on 2-3 L of oxygen at home, pneumonias, fungal infection who receives her care at [facility] presented to ER yesterday with shortness of breath. Patient states shortness of breath started day before yesterday and she called her steam room attendant's office and received some prescription for medications but dyspnea was worse yesterday she was coughing and cough associated with yellowish phlegm. She denies any fever chest pain abdominal pain nausea vomiting diarrhea constipation blood in the stool blood in the urine. No chills or rigors no dysuria . All other systems were reviewed and were negative. Workup in the ER showed patient to be hypoxic and hypercarbic with ABG showing pH of 7.28 pCO2 80 and PO2 59. Lactic was 1.4. Procalcitonin level was 0.3 troponins were negative BNP 3 9 9. WBC 20.[address] patient was placed on BiPAP. She requested transfer to [facility] where she receives her care and transfer center was contacted and patient was placed on wait list as they did not have a bed time . Patient was given IV fluids and broad-spectrum antibiotics. Review of Systems Review of Systems: All systems reviewed & are unremarkable except as noted in HPI and below ( HPI) [facility] Past Medical History Medical History (Updated 01/19/24 @ 10:38 by Darnell Alonso MD) COPD (chronic obstructive pulmonary disease) on oxygen 2-3 L Hypertension Family History Family History (Updated 01/18/24 @ 22:29 by Broderick King RN) Father Throat cancer Sibling COPD (chronic obstructive pulmonary disease) Sibling Bladder cancer Social History Social History Smoking status: Former smoker Alcohol intake: never Substance use: never Do You Feel Safe in your Home?: Yes Lack of Transportation: No Lack of Food: Never True Current Housing: I Have Housing Concerned About Future Housing: No Difficulty Paying Gas/Electric Bills: No Difficulty Paying for Meds: No Currently Unemployed: No Education: High School Diploma/GED Difficulty w/ Childcare or Family Care: No Spiritual care concerns: No Meds Home Medications and Allergies Home Medications Medication Instructions Recorded Confirmed Type albuterol sulfate 0.63 mg/3 mL 0.63 mg inhalation DAILY 01/18/24 01/18/24 History solution for nebulization calcitriol 0.25 mcg capsule 0.25 mcg PO DAILY 01/18/24 01/18/24 History ergocalciferol (vitamin D2) 1,250 1,250 mcg PO WEEKLY 01/18/24 01/18/24 History mcg (50,000 unit) capsule fluticasone fur. 200 mcg-umeclid 1 inh inhalation DAILY 01/18/24 01/18/24 History 62.5 mcg-vilant 25 mcg inhalat.powder (Trelegy Ellipta) furosemide 20 mg tablet 20 mg PO DAILY 01/18/24 01/18/24 History hydrocodone 5 mg-acetaminophen 325 1 tablet PO Q8H PRN Moderate Pain 01/18/24 01/18/24 History mg tablet (Scale Score 5-6) levalbuterol tartrate 45 2 puff inhalation Q6H PRN 01/18/24 01/18/24 History mcg/actuation aerosol inhaler Shortness Of Breath Or Wheezing lisinopril 20 mg tablet 20 mg PO DAILY 01/18/24 01/18/24 History meclizine 25 mg tablet 25 mg PO BID 01/18/24 01/18/24 History pramipexole 0.5 mg tablet 0.5 mg PO DAILY 01/18/24 01/18/24 History prednisolone acetate 1 % eye 1 drp RIGHT EYE QID 01/18/24 01/18/24 History drops,suspension Allergies Allergy/AdvReac Type Severity Reaction Status Date / Time morphine Allergy Unknown Verified 01/18/24 18:32 Vital Signs Vital Signs - 24 hr 01/18/24 17:56 01/18/24 18:08 01/18/24 18:14 Temperature 37.8 C H Pulse Rate 102 H Respiratory Rate 20 Blood Pressure 155/78 H Pulse Oximetry 100 Oxygen Delivery BiPAP Fraction of Inspired Oxygen 01/18/24 18:15 01/18/24 18:00 01/18/24 19:16 Temperature Pulse Rate 111 H 105 H 101 H Respiratory Rate 24 H 24 H 20 Blood Pressure 132/57 L 112/58 L Pulse Oximetry 97 100 98 Oxygen Delivery BiPAP Fraction of Inspired Oxygen 01/18/24 20:01 01/18/24 20:05 01/18/24 19:39 Temperature 38.5 C H 38.5 C H Pulse Rate 106 H 104 H Respiratory Rate 23 H 25 H Blood Pressure 108/56 L Pulse Oximetry 97 98 Oxygen Delivery Fraction of Inspired Oxygen 01/18/24 19:45 01/18/24 19:46 01/18/24 20:00 Temperature Pulse Rate 104 H 109 H 106 H Respiratory Rate 23 H 21 H 27 H Blood Pressure 114/70 Pulse Oximetry 98 98 Oxygen Delivery Fraction of Inspired Oxygen 01/18/24 20:01 01/18/24 20:15 01/18/24 20:16 Temperature Pulse Rate 106 H 106 H 105 H Respiratory Rate 24 H 21 H 20 Blood Pressure 108/56 L 98/58 L Pulse Oximetry 99 99 Oxygen Delivery Fraction of Inspired Oxygen 01/18/24 20:30 01/18/24 20:31 01/18/24 21:07 Temperature 38.3 C H Pulse Rate 107 H 105 H 107 H Respiratory Rate 20 27 H Blood Pressure 92/53 L Pulse Oximetry 99 99 100 Oxygen Delivery Fraction of Inspired Oxygen 01/18/24 21:05 01/18/24 21:15 01/18/24 21:16 Temperature 38.3 C H Pulse Rate Respiratory Rate Blood Pressure 78/55 L Pulse Oximetry 100 100 Oxygen Delivery Fraction of Inspired Oxygen 01/18/24 21:17 01/18/24 21:18 01/18/24 21:31 Temperature Pulse Rate 105 H Respiratory Rate Blood Pressure 74/57 L Pulse Oximetry 100 100 100 Oxygen Delivery Fraction of Inspired Oxygen 01/18/24 21:32 01/18/24 21:30 01/18/24 22:00 Temperature 38.3 C H Pulse Rate 105 H 86 Respiratory Rate Blood Pressure 73/53 L Pulse Oximetry 100 Oxygen Delivery Fraction of Inspired Oxygen 01/18/24 22:00 01/18/24 22:37 01/18/24 21:33 Temperature 37.6 C Pulse Rate 86 87 104 H Respiratory Rate 23 H 18 Blood Pressure 90/58 L Pulse Oximetry 100 100 100 Oxygen Delivery BiPAP Fraction of Inspired Oxygen 50 01/18/24 21:39 01/18/24 21:59 01/18/24 22:00 Temperature Pulse Rate 97 98 Respiratory Rate 21 H 17 Blood Pressure 62/54 L 90/58 L Pulse Oximetry 100 100 Oxygen Delivery Fraction of Inspired Oxygen 01/18/24 22:01 01/18/24 22:15 01/18/24 22:16 Temperature Pulse Rate 97 91 89 Respiratory Rate 27 H 25 H 29 H Blood Pressure 94/64 L Pulse Oximetry 99 99 100 Oxygen Delivery Fraction of Inspired Oxygen 01/18/24 22:30 01/18/24 22:31 01/18/24 22:45 Temperature Pulse Rate 88 85 82 Respiratory Rate 21 H 19 21 H Blood Pressure 93/60 L Pulse Oximetry 100 100 100 Oxygen Delivery Fraction of Inspired Oxygen 01/18/24 22:46 01/18/24 23:00 01/18/24 23:01 Temperature Pulse Rate 83 81 82 Respiratory Rate 20 20 21 H Blood Pressure 93/55 L 77/54 L Pulse Oximetry 100 100 100 Oxygen Delivery Fraction of Inspired Oxygen 01/18/24 23:04 01/18/24 23:15 01/18/24 23:16 Temperature Pulse Rate 77 75 75 Respiratory Rate 21 H 19 21 H Blood Pressure 81/54 L 85/53 L Pulse Oximetry 100 100 100 Oxygen Delivery Fraction of Inspired Oxygen 01/18/24 23:30 01/18/24 23:31 01/18/24 23:45 Temperature Pulse Rate 79 79 77 Respiratory Rate 20 19 20 Blood Pressure 108/58 L Pulse Oximetry 100 100 100 Oxygen Delivery Fraction of Inspired Oxygen 01/18/24 23:46 01/19/24 00:00 01/19/24 00:01 Temperature Pulse Rate 78 74 73 Respiratory Rate 21 H 20 20 Blood Pressure 92/54 L 96/55 L Pulse Oximetry 100 100 100 Oxygen Delivery Fraction of Inspired Oxygen 01/19/24 00:15 01/19/24 00:16 01/19/24 00:30 Temperature Pulse Rate 76 76 81 Respiratory Rate 24 H 22 H 24 H Blood Pressure 101/61 Pulse Oximetry 100 100 100 Oxygen Delivery Fraction of Inspired Oxygen 01/19/24 00:31 01/19/24 02:04 01/19/24 02:13 Temperature Pulse Rate 78 72 70 Respiratory Rate 24 H 19 16 Blood Pressure 108/66 Pulse Oximetry 100 100 Oxygen Delivery BiPAP Fraction of Inspired Oxygen 01/19/24 02:13 01/19/24 01:00 01/19/24 01:00 Temperature 37.2 C Pulse Rate 74 71 71 Respiratory Rate 20 18 18 Blood Pressure 86/60 L Pulse Oximetry 100 100 Oxygen Delivery BiPAP Fraction of Inspired Oxygen 50 01/19/24 02:00 01/19/24 02:00 01/19/24 00:00 Temperature Pulse Rate 71 71 73 Respiratory Rate 19 Blood Pressure 75/46 L Pulse Oximetry 100 Oxygen Delivery Fraction of Inspired Oxygen 01/19/24 03:23 01/19/24 03:30 01/19/24 00:00 Temperature Pulse Rate 74 Respiratory Rate 20 Blood Pressure 120/82 113/64 96/55 L Pulse Oximetry 100 Oxygen Delivery Fraction of Inspired Oxygen 01/18/24 23:15 01/18/24 22:15 01/19/24 02:15 Temperature Pulse Rate 80 92 69 Respiratory Rate 20 21 H 18 Blood Pressure 85/53 L 94/64 L 77/46 L Pulse Oximetry 100 100 100 Oxygen Delivery Fraction of Inspired Oxygen 01/19/24 02:30 01/19/24 02:45 01/19/24 03:00 Temperature Pulse Rate 71 73 68 Respiratory Rate 18 19 19 Blood Pressure 64/39 L 85/48 L 84/56 L Pulse Oximetry 100 100 100 Oxygen Delivery Fraction of Inspired Oxygen 01/19/24 04:00 01/19/24 04:45 01/19/24 04:45 Temperature 36.5 C Pulse Rate 66 62 62 Respiratory Rate 18 18 Blood Pressure 118/69 Pulse Oximetry 100 100 Oxygen Delivery BiPAP Fraction of Inspired Oxygen 50 01/19/24 05:35 01/19/24 06:11 01/19/24 06:11 Temperature Pulse Rate 67 64 64 Respiratory Rate 15 20 Blood Pressure 123/62 Pulse Oximetry 100 98 Oxygen Delivery BiPAP Fraction of Inspired Oxygen 01/19/24 07:53 01/19/24 07:53 01/19/24 07:53 Temperature Pulse Rate 78 78 Respiratory Rate 16 16 Blood Pressure Pulse Oximetry 91 91 Oxygen Delivery BiPAP BiPAP Fraction of Inspired Oxygen 30 01/19/24 08:15 01/19/24 08:00 01/19/24 08:00 Temperature 36.6 C Pulse Rate 79 75 Respiratory Rate 16 18 Blood Pressure 112/67 Pulse Oximetry 90 90 Oxygen Delivery BiPAP Fraction of Inspired Oxygen 30 Results Labs 01/18/24 18:19 01/19/24 03:35 Labs: Impressions Chest X-Ray 01/18/24 19:20 IMPRESSION: Right mid and lower lung opacities, may represent infection in the appropriate clinical context. Small bilateral pleural effusions versus chronic pleural blunting. Short CBC 01/18/24 Range/Units 18:19 WBC 20.1 H (4.5-10.0) K/mm3 Hgb 13.1 (12.0-15.0) g/dL Hct 42.7 (37.0-47.0) % Plt Count 200 (150-375) k/mm3 BMP 01/18/24 01/18/24 01/18/24 18:19 18:19 18:19 Sodium Cancelled 139 Potassium Cancelled 3.9 Chloride Cancelled Carbon Dioxide BUN Creatinine Glucose Calcium 01/18/24 01/18/24 01/18/24 18:19 18:19 18:19 Sodium Potassium Chloride 91 L Carbon Dioxide Cancelled > 40 H BUN Cancelled 27 H Creatinine Cancelled Glucose Calcium 01/18/24 01/18/24 01/18/24 18:19 18:19 18:19 Sodium Potassium Chloride Carbon Dioxide BUN Creatinine 0.90 Glucose Cancelled 141 H Calcium Cancelled 9.3 01/19/24 03:35 Sodium Potassium Chloride Carbon Dioxide BUN Creatinine 0.80 Glucose Calcium Cardiac Enzymes 01/18/24 01/18/24 Range/Units 18:19 23:25 Troponin I < 0.012 0.026 D (0.000-0.034) ng/mL Liver Function 01/18/24 01/18/24 01/18/24 Range/Units 18:19 18:19 18:19 Total Bilirubin Cancelled 1.2 AST Cancelled 22 ALT Cancelled Alkaline Phosphatase Albumin 01/18/24 01/18/24 01/18/24 Range/Units 18:19 18:19 18:19 Total Bilirubin AST ALT 11 Alkaline Phosphatase Cancelled 85 Albumin Cancelled 4.2 Urine 01/18/24 Range/Units 19:59 Urine Color Dark yellow (Yellow) Urine Appearance Cloudy H (Clear) Urine pH 5.0 (5.0-9.0) Ur Specific [place] 1.022 (1.001-1.035) Urine Protein 2+ H (Negative) mg/dL Urine Glucose (UA) Trace H (Negative) mg/dL ECG Interpretation: sinus tachycardia Hospitalist MIPS Advance Care Plan I have confirmed that the patient's Advanced Care Plan is present, code status is documented, or surrogate decision maker is listed in patient medical record.: Yes Medication Reconciliation I have utilized all available resources to obtain, update and review the patients current medications (includes all prescriptions, OTC, herbals, cannabis, and nutritional supplements).: Yes
--- NOTE | 2024-01-19 15:33 | PM.IMPN ---
Progress Note: A&P Assessment and Plan (1) Acute and chronic respiratory failure with hypercapnia: Code(s): J96.22 - Acute and chronic respiratory failure with hypercapnia Status: Acute Assessment and Plan: patient has history of severe COPD and now presented with what appears to be COPD exacerbation with possible pneumonia. ABG shows hypercarbia and hypoxia ABG done this morning showed worsening with worsening CO2. I changed her IPAP to 18 and decrease the FiO2 and ABG was repeated which showed improvement. Patient otherwise is alert awake oriented and in no respiratory distress with good tidal volumes. Continue BiPAP at this time. If worsens patient may need intubation I have discussed this in detail the patient she is reluctant to get intubated but does not want to be DNI. She believes that if she goes on a ventilator she will never come off.. I have explained to her that we will try our best with BiPAP and treatment to avoid intubation but depending on her clinical condition as she deteriorated she will need intubation and mechanical ventilation . Meanwhile patient awaits transfer to [facility] continue treatment for COPD with steroids, bronchodilators BiPAP settings reviewed patient presented with elevated WBC but patient has been on steroids in the past. Patient also has cough with yellow sputum low procalcitonin level. Chest x-ray suggest infiltrates. Patient will be treated empirically for pneumonia at this time. Continue vancomycin cefepime and Levaquin to cover for healthcare associated pneumonia as patient has had history with of infection with drug-resistant bacteria as per ER physician's review of records from outside facility. Blood cultures have been sent and are pending (2) Pneumonia: Code(s): J18.9 - Pneumonia, unspecified organism Status: Acute Assessment and Plan: see above (3) COPD with exacerbation: Code(s): J44.1 - Chronic obstructive pulmonary disease with (acute) exacerbation Status: Acute Assessment and Plan: see above Plan DVT prophylaxis - Lovenox Stress ulcer prophylaxis - PPI Nutrition - npo Code Status - Full Code Subjective Date/time seen: 01/19/24 15:33 Interval history: Currently on BiPAP 25/08, respiratory rate 14, FiO2 30%. ABGs improving, CO2 improved from 117.7-76.2. Awaiting transfer to [place] Review of Systems Review of Systems: All systems reviewed & are unremarkable except as noted in HPI and below ( HPI) ROS unobtainable: Yes unobtainable due to mental status (obtundation/lethargy) and other (on BiPAP) Exam Narrative: lying in stretcher Const: General: comfortable, no acute distress, well developed, ill appearing, lethargic, patient obtunded, average body habitus and other (on BiPAP) Nutritional Appearance: average body habitus Orientation/consciousness: patient obtunded and lethargic HENMT: Head: normal to inspection, normocephalic and atraumatic Ears: hearing grossly normal bilaterally Face/Nose/Sinus: normal facial exam Face and sinus: normal facial exam Eyes: General: appearance normal, both eyes and all related structures Pupils: Equal, round and reactive pupils present EOM: EOMs intact bilaterally Neck: Neck: full ROM, no lymphadenopathy and no JVD Thyroid: thyroid normal Lymphatic: no lymphadenopathy noted Resp: Effort & Inspection: normal respiratory effort and other (on BiPAP) Auscultation: wheezes (isolated) and diminished lung sounds Cardio: Jugular venous distension: no JVD Rate: regular rate Rhythm: regular rhythm Heart sounds: S1 normal heart sound present and S2 normal heart sound present : General: Yes deferred Skin: Rashes: no rashes Wounds: no wounds Neuro: General: no focal motor deficits, CN's II-XI intact bilaterally, patient obtunded and Unable to assess gait Cranial nerves: Yes CN's II-XII intact bilaterally and Yes Equal, round and reactive pupils present Cognition (Neuro): abnormal cognition (obtundation) Speech: normal speech Gait exam (Neuro): Unable to assess gait Motor exam (neuro): 5/5 motor strength present throughout Extrem: General: normal to inspection, full ROM, no joint enlargement and no pedal edema Other: trace edema Objective Data Vital Signs Vital Signs: Vital Signs - 24 hr 01/18/24 17:56 01/18/24 18:08 01/18/24 18:14 Temperature 100.1 F H Pulse Rate 102 H Respiratory Rate 20 Blood Pressure 155/78 H Pulse Oximetry 100 Oxygen Delivery BiPAP Fraction of Inspired Oxygen 01/18/24 18:15 01/18/24 18:00 01/18/24 19:16 Temperature Pulse Rate 111 H 105 H 101 H Respiratory Rate 24 H 24 H 20 Blood Pressure 132/57 L 112/58 L Pulse Oximetry 97 100 98 Oxygen Delivery BiPAP Fraction of Inspired Oxygen 01/18/24 20:01 01/18/24 20:05 01/18/24 19:39 Temperature 101.3 F H 101.3 F H Pulse Rate 106 H 104 H Respiratory Rate 23 H 25 H Blood Pressure 108/56 L Pulse Oximetry 97 98 Oxygen Delivery Fraction of Inspired Oxygen 01/18/24 19:45 01/18/24 19:46 01/18/24 20:00 Temperature Pulse Rate 104 H 109 H 106 H Respiratory Rate 23 H 21 H 27 H Blood Pressure 114/70 Pulse Oximetry 98 98 Oxygen Delivery Fraction of Inspired Oxygen 01/18/24 20:01 01/18/24 20:15 01/18/24 20:16 Temperature Pulse Rate 106 H 106 H 105 H Respiratory Rate 24 H 21 H 20 Blood Pressure 108/56 L 98/58 L Pulse Oximetry 99 99 Oxygen Delivery Fraction of Inspired Oxygen 01/18/24 20:30 01/18/24 20:31 01/18/24 21:07 Temperature 101.0 F H Pulse Rate 107 H 105 H 107 H Respiratory Rate 20 27 H Blood Pressure 92/53 L Pulse Oximetry 99 99 100 Oxygen Delivery Fraction of Inspired Oxygen 01/18/24 21:05 01/18/24 21:15 01/18/24 21:16 Temperature 101 F H Pulse Rate Respiratory Rate Blood Pressure 78/55 L Pulse Oximetry 100 100 Oxygen Delivery Fraction of Inspired Oxygen 01/18/24 21:17 01/18/24 21:18 01/18/24 21:31 Temperature Pulse Rate 105 H Respiratory Rate Blood Pressure 74/57 L Pulse Oximetry 100 100 100 Oxygen Delivery Fraction of Inspired Oxygen 01/18/24 21:32 01/18/24 21:30 01/18/24 22:00 Temperature 101 F H Pulse Rate 105 H 86 Respiratory Rate Blood Pressure 73/53 L Pulse Oximetry 100 Oxygen Delivery Fraction of Inspired Oxygen 01/18/24 22:00 01/18/24 22:37 01/18/24 21:33 Temperature 99.6 F Pulse Rate 86 87 104 H Respiratory Rate 23 H 18 Blood Pressure 90/58 L Pulse Oximetry 100 100 100 Oxygen Delivery BiPAP Fraction of Inspired Oxygen 50 01/18/24 21:39 01/18/24 21:59 01/18/24 22:00 Temperature Pulse Rate 97 98 Respiratory Rate 21 H 17 Blood Pressure 62/54 L 90/58 L Pulse Oximetry 100 100 Oxygen Delivery Fraction of Inspired Oxygen 01/18/24 22:01 01/18/24 22:15 01/18/24 22:16 Temperature Pulse Rate 97 91 89 Respiratory Rate 27 H 25 H 29 H Blood Pressure 94/64 L Pulse Oximetry 99 99 100 Oxygen Delivery Fraction of Inspired Oxygen 01/18/24 22:30 01/18/24 22:31 01/18/24 22:45 Temperature Pulse Rate 88 85 82 Respiratory Rate 21 H 19 21 H Blood Pressure 93/60 L Pulse Oximetry 100 100 100 Oxygen Delivery Fraction of Inspired Oxygen 01/18/24 22:46 01/18/24 23:00 01/18/24 23:01 Temperature Pulse Rate 83 81 82 Respiratory Rate 20 20 21 H Blood Pressure 93/55 L 77/54 L Pulse Oximetry 100 100 100 Oxygen Delivery Fraction of Inspired Oxygen 01/18/24 23:04 01/18/24 23:15 01/18/24 23:16 Temperature Pulse Rate 77 75 75 Respiratory Rate 21 H 19 21 H Blood Pressure 81/54 L 85/53 L Pulse Oximetry 100 100 100 Oxygen Delivery Fraction of Inspired Oxygen 01/18/24 23:30 01/18/24 23:31 01/18/24 23:45 Temperature Pulse Rate 79 79 77 Respiratory Rate 20 19 20 Blood Pressure 108/58 L Pulse Oximetry 100 100 100 Oxygen Delivery Fraction of Inspired Oxygen 01/18/24 23:46 01/19/24 00:00 01/19/24 00:01 Temperature Pulse Rate 78 74 73 Respiratory Rate 21 H 20 20 Blood Pressure 92/54 L 96/55 L Pulse Oximetry 100 100 100 Oxygen Delivery Fraction of Inspired Oxygen 01/19/24 00:15 01/19/24 00:16 01/19/24 00:30 Temperature Pulse Rate 76 76 81 Respiratory Rate 24 H 22 H 24 H Blood Pressure 101/61 Pulse Oximetry 100 100 100 Oxygen Delivery Fraction of Inspired Oxygen 01/19/24 00:31 01/19/24 02:04 01/19/24 02:13 Temperature Pulse Rate 78 72 70 Respiratory Rate 24 H 19 16 Blood Pressure 108/66 Pulse Oximetry 100 100 Oxygen Delivery BiPAP Fraction of Inspired Oxygen 01/19/24 02:13 01/19/24 01:00 01/19/24 01:00 Temperature 98.9 F Pulse Rate 74 71 71 Respiratory Rate 20 18 18 Blood Pressure 86/60 L Pulse Oximetry 100 100 Oxygen Delivery BiPAP Fraction of Inspired Oxygen 50 01/19/24 02:00 01/19/24 02:00 01/19/24 00:00 Temperature Pulse Rate 71 71 73 Respiratory Rate 19 Blood Pressure 75/46 L Pulse Oximetry 100 Oxygen Delivery Fraction of Inspired Oxygen 01/19/24 03:23 01/19/24 03:30 01/19/24 00:00 Temperature Pulse Rate 74 Respiratory Rate 20 Blood Pressure 120/82 113/64 96/55 L Pulse Oximetry 100 Oxygen Delivery Fraction of Inspired Oxygen 01/18/24 23:15 01/18/24 22:15 01/19/24 02:15 Temperature Pulse Rate 80 92 69 Respiratory Rate 20 21 H 18 Blood Pressure 85/53 L 94/64 L 77/46 L Pulse Oximetry 100 100 100 Oxygen Delivery Fraction of Inspired Oxygen 01/19/24 02:30 01/19/24 02:45 01/19/24 03:00 Temperature Pulse Rate 71 73 68 Respiratory Rate 18 19 19 Blood Pressure 64/39 L 85/48 L 84/56 L Pulse Oximetry 100 100 100 Oxygen Delivery Fraction of Inspired Oxygen 01/19/24 04:00 01/19/24 04:45 01/19/24 04:45 Temperature 97.7 F Pulse Rate 66 62 62 Respiratory Rate 18 18 Blood Pressure 118/69 Pulse Oximetry 100 100 Oxygen Delivery BiPAP Fraction of Inspired Oxygen 50 01/19/24 05:35 01/19/24 06:11 01/19/24 06:11 Temperature Pulse Rate 67 64 64 Respiratory Rate 15 20 Blood Pressure 123/62 Pulse Oximetry 100 98 Oxygen Delivery BiPAP Fraction of Inspired Oxygen 01/19/24 07:53 01/19/24 07:53 01/19/24 07:53 Temperature Pulse Rate 78 78 Respiratory Rate 16 16 Blood Pressure Pulse Oximetry 91 91 Oxygen Delivery BiPAP BiPAP Fraction of Inspired Oxygen 30 01/19/24 08:15 01/19/24 08:00 01/19/24 08:00 Temperature 97.9 F Pulse Rate 79 75 Respiratory Rate 16 18 Blood Pressure 112/67 Pulse Oximetry 90 90 Oxygen Delivery BiPAP Fraction of Inspired Oxygen 30 01/19/24 10:46 01/19/24 08:00 01/19/24 10:00 Temperature Pulse Rate 72 72 91 Respiratory Rate 16 Blood Pressure Pulse Oximetry 96 Oxygen Delivery BiPAP Fraction of Inspired Oxygen 01/19/24 10:01 01/19/24 12:00 01/19/24 12:01 Temperature 99.1 F Pulse Rate 89 75 75 Respiratory Rate 22 H 15 15 Blood Pressure 122/78 123/74 Pulse Oximetry 98 98 98 Oxygen Delivery BiPAP Fraction of Inspired Oxygen 30 01/19/24 12:00 01/19/24 13:43 01/19/24 13:43 Temperature Pulse Rate 72 78 78 Respiratory Rate 18 18 Blood Pressure Pulse Oximetry 97 Oxygen Delivery BiPAP Fraction of Inspired Oxygen 01/19/24 13:54 01/19/24 14:00 01/19/24 14:00 Temperature Pulse Rate 90 78 76 Respiratory Rate 20 18 Blood Pressure 111/65 Pulse Oximetry 99 Oxygen Delivery Fraction of Inspired Oxygen Intake/Output Intake/Output: Intake & Output 01/16/24 01/17/24 01/18/24 01/19/24 23:59 23:59 23:59 23:59 Intake Total 1200 750 Output Total 200 Balance 1200 550 Meds/Results Medications: Active Medications Generic Name Dose Route Start Last Admin Trade Name Freq PRN Reason Stop Dose Admin Acetaminophen 975 mg 01/18/24 19:51 01/18/24 20:05 Acetaminophen 325 Mg Suppository RECTAL 975 mg Q6H PRN Administration Mild Pain (1-3) or Fever Acetaminophen 650 mg 01/18/24 20:20 Acetaminophen 650 Mg Suppository RECTAL Q6H PRN Mild Pain (1-3) or Fever Hydrocodone Bitart/Acetaminophen 1 tab 01/19/24 10:43 Hydrocodone/Acetaminophen (*Crx) 5-325 Mg Tablet PO Q4H PRN Pain Rated 4-6 Albuterol/Ipratropium 3 ml 01/19/24 02:00 01/19/24 13:43 Ipratropium 0.5 Mg/Albuterol Sulfate 2.5 Mg Ampul.Neb 3 Ml INHALATION 3 ml Q6HRT SHAHID Administration Enoxaparin Sodium 40 mg 01/19/24 09:00 01/19/24 09:58 Enoxaparin 40 Mg/0.4 Ml Syringe SUB-Q 40 mg DAILY SHAHID Administration Cefepime HCl 2 gm in 50 mls @ 100 mls/hr 01/18/24 20:00 01/19/24 09:58 Maxipime 2 Gm/Ns 50 Ml IVPB 100 mls/hr Q12H SHAHID Administration Levofloxacin/Dextrose 750 mg in 150 mls @ 100 mls/hr 01/20/24 21:00 Levaquin 750 Mg/D5w 150 Ml IVPB Q48H [facility] Vancomycin HCl 1,250 mg in 250 mls @ 166.667 mls/hr 01/19/24 22:00 Vancomycin 1,250 Mg/Ns 250 Ml IVPB Q24H [facility] Methylprednisolone Sodium Succinate 60 mg 01/19/24 06:00 01/19/24 14:10 Methylprednisolone Sod Succ 125 Mg Vial IV PUSH 60 mg Q8HR SHAHID Administration Pantoprazole Sodium 40 mg 01/19/24 09:00 01/19/24 09:58 Pantoprazole Sodium Iv 40 Mg Vial IV PUSH 40 mg QAM [facility] Administration Pramipexole Dihydrochloride 0.5 mg 01/19/24 14:20 Pramipexole 0.5 Mg Tablet PO DAILY [facility] Radiology Results: ITS Impressions Chest X-Ray 01/18/24 19:20 IMPRESSION: Right mid and lower lung opacities, may represent infection in the appropriate clinical context. Small bilateral pleural effusions versus chronic pleural blunting. Labs Labs: Laboratory Results - last 24 hr 01/18/24 01/18/24 01/18/24 18:18 18:19 18:19 WBC 20.1 H RBC 4.03 L Hgb 13.1 Hct 42.7 MCV 106.0 H MCH 32.5 MCHC 30.7 L RDW 12.2 Plt Count 200 MPV 11.4 H Immature Gran % (Auto) 1.3 H Neut % (Auto) 73.5 H Lymph % (Auto) 14.4 L [place] % (Auto) 10.3 H Eos % (Auto) 0.1 Baso % (Auto) 0.4 Lymph # (Auto) 2.88 [place] # (Auto) 2.1 H Eos # (Auto) 0.0 Baso # (Auto) 0.1 Abs Immat Gran (auto) 0.26 H Absolute Neuts (auto) 14.8 H Absolute Nucleated RBC 0.000 Nucleated RBC % 0.0 PT 15.1 H INR 1.1 APTT 27.4 Puncture Site ABG pH ABG pCO2 ABG pO2 ABG PO2/FiO2 Ratio ABG HCO3 ABG O2 Saturation ABG O2 Content ABG Base Excess A-a Gradient Oxyhemoglobin Carboxyhemoglobin Methemoglobin Reduced Hemoglobin Total Hemoglobin O2 Delivery Device O2 Liters/Min Vent Rate FiO2 Expiratory Pressure Inspiratory Pressure Sodium Cancelled 139 Potassium Cancelled Chloride Carbon Dioxide Anion Gap BUN Creatinine Estim Creat Clear Calc Estimated GFR Glucose Lactic Acid 1.4 Calcium Magnesium Total Bilirubin AST ALT Alkaline Phosphatase Troponin I NT-Pro-B Natriuret Pep Total Protein Albumin Procalcitonin Urine Color Urine Appearance Urine pH Ur Specific [place] Urine Protein Urine Glucose (UA) Urine Ketones Ur Blood (Man) Urine Nitrate Urine Bilirubin Urine Urobilinogen Leukocyte Esterase Rfl Urine RBC Urine WBC Ur Squamous Epith Cells Urine Bacteria Urine Casts Hyaline Casts Nasal MRSA (PCR) Influenza A (RT-PCR) Influenza B (RT-PCR) RSV (RT-PCR) SARS-CoV-2 RNA (RT-PCR) 01/18/24 01/18/24 01/18/24 18:19 18:19 18:19 WBC RBC Hgb Hct MCV MCH MCHC RDW Plt Count MPV Immature Gran % (Auto) Neut % (Auto) Lymph % (Auto) [place] % (Auto) Eos % (Auto) Baso % (Auto) Lymph # (Auto) [place] # (Auto) Eos # (Auto) Baso # (Auto) Abs Immat Gran (auto) Absolute Neuts (auto) Absolute Nucleated RBC Nucleated RBC % PT INR APTT Puncture Site ABG pH ABG pCO2 ABG pO2 ABG PO2/FiO2 Ratio ABG HCO3 ABG O2 Saturation ABG O2 Content ABG Base Excess A-a Gradient Oxyhemoglobin Carboxyhemoglobin Methemoglobin Reduced Hemoglobin Total Hemoglobin O2 Delivery Device O2 Liters/Min Vent Rate FiO2 Expiratory Pressure Inspiratory Pressure Sodium Potassium 3.9 Chloride Cancelled 91 L Carbon Dioxide Cancelled > 40 H Anion Gap Cancelled BUN Creatinine Estim Creat Clear Calc Estimated GFR Glucose Lactic Acid Calcium Magnesium Total Bilirubin AST ALT Alkaline Phosphatase Troponin I NT-Pro-B Natriuret Pep Total Protein Albumin Procalcitonin Urine Color Urine Appearance Urine pH Ur Specific [place] Urine Protein Urine Glucose (UA) Urine Ketones Ur Blood (Man) Urine Nitrate Urine Bilirubin Urine Urobilinogen Leukocyte Esterase Rfl Urine RBC Urine WBC Ur Squamous Epith Cells Urine Bacteria Urine Casts Hyaline Casts Nasal MRSA (PCR) Influenza A (RT-PCR) Influenza B (RT-PCR) RSV (RT-PCR) SARS-CoV-2 RNA (RT-PCR) 01/18/24 01/18/2401/17/24 18:19 18:19 18:19 WBC RBC Hgb Hct MCV MCH MCHC RDW Plt Count MPV Immature Gran % (Auto) Neut % (Auto) Lymph % (Auto) [place] % (Auto) Eos % (Auto) Baso % (Auto) Lymph # (Auto) [place] # (Auto) Eos # (Auto) Baso # (Auto) Abs Immat Gran (auto) Absolute Neuts (auto) Absolute Nucleated RBC Nucleated RBC % PT INR APTT Puncture Site ABG pH ABG pCO2 ABG pO2 ABG PO2/FiO2 Ratio ABG HCO3 ABG O2 Saturation ABG O2 Content ABG Base Excess A-a Gradient Oxyhemoglobin Carboxyhemoglobin Methemoglobin Reduced Hemoglobin Total Hemoglobin O2 Delivery Device O2 Liters/Min Vent Rate FiO2 Expiratory Pressure Inspiratory Pressure Sodium Potassium Chloride Carbon Dioxide Anion Gap BUN Cancelled 27 H Creatinine Cancelled 0.90 Estim Creat Clear Calc Cancelled Estimated GFR Glucose Lactic Acid Calcium Magnesium Total Bilirubin AST ALT Alkaline Phosphatase Troponin I NT-Pro-B Natriuret Pep Total Protein Albumin Procalcitonin Urine Color Urine Appearance Urine pH Ur Specific [place] Urine Protein Urine Glucose (UA) Urine Ketones Ur Blood (Man) Urine Nitrate Urine Bilirubin Urine Urobilinogen Leukocyte Esterase Rfl Urine RBC Urine WBC Ur Squamous Epith Cells Urine Bacteria Urine Casts Hyaline Casts Nasal MRSA (PCR) Influenza A (RT-PCR) Influenza B (RT-PCR) RSV (RT-PCR) SARS-CoV-2 RNA (RT-PCR) 01/18/24 01/18/24 01/18/24 18:19 18:19 18:19 WBC RBC Hgb Hct MCV MCH MCHC RDW Plt Count MPV Immature Gran % (Auto) Neut % (Auto) Lymph % (Auto) [place] % (Auto) Eos % (Auto) Baso % (Auto) Lymph # (Auto) [place] # (Auto) Eos # (Auto) Baso # (Auto) Abs Immat Gran (auto) Absolute Neuts (auto) Absolute Nucleated RBC Nucleated RBC % PT INR APTT Puncture Site ABG pH ABG pCO2 ABG pO2 ABG PO2/FiO2 Ratio ABG HCO3 ABG O2 Saturation ABG O2 Content ABG Base Excess A-a Gradient Oxyhemoglobin Carboxyhemoglobin Methemoglobin Reduced Hemoglobin Total Hemoglobin O2 Delivery Device O2 Liters/Min Vent Rate FiO2 Expiratory Pressure Inspiratory Pressure Sodium Potassium Chloride Carbon Dioxide Anion Gap BUN Creatinine Estim Creat Clear Calc 44 Estimated GFR Cancelled > 60 Glucose Cancelled 141 H Lactic Acid Calcium Cancelled Magnesium Total Bilirubin AST ALT Alkaline Phosphatase Troponin I NT-Pro-B Natriuret Pep Total Protein Albumin Procalcitonin Urine Color Urine Appearance Urine pH Ur Specific [place] Urine Protein Urine Glucose (UA) Urine Ketones Ur Blood (Man) Urine Nitrate Urine Bilirubin Urine Urobilinogen Leukocyte Esterase Rfl Urine RBC Urine WBC Ur Squamous Epith Cells Urine Bacteria Urine Casts Hyaline Casts Nasal MRSA (PCR) Influenza A (RT-PCR) Influenza B (RT-PCR) RSV (RT-PCR) SARS-CoV-2 RNA (RT-PCR) 01/18/24 01/18/24 01/18/24 18:19 18:19 18:19 WBC RBC Hgb Hct MCV MCH MCHC RDW Plt Count MPV Immature Gran % (Auto) Neut % (Auto) Lymph % (Auto) [place] % (Auto) Eos % (Auto) Baso % (Auto) Lymph # (Auto) [place] # (Auto) Eos # (Auto) Baso # (Auto) Abs Immat Gran (auto) Absolute Neuts (auto) Absolute Nucleated RBC Nucleated RBC % PT INR APTT Puncture Site ABG pH ABG pCO2 ABG pO2 ABG PO2/FiO2 Ratio ABG HCO3 ABG O2 Saturation ABG O2 Content ABG Base Excess A-a Gradient Oxyhemoglobin Carboxyhemoglobin Methemoglobin Reduced Hemoglobin Total Hemoglobin O2 Delivery Device O2 Liters/Min Vent Rate FiO2 Expiratory Pressure Inspiratory Pressure Sodium Potassium Chloride Carbon Dioxide Anion Gap BUN Creatinine Estim Creat Clear Calc Estimated GFR Glucose Lactic Acid Calcium 9.3 Magnesium 2.1 Total Bilirubin Cancelled 1.2 AST Cancelled 22 ALT Cancelled Alkaline Phosphatase Troponin I NT-Pro-B Natriuret Pep Total Protein Albumin Procalcitonin Urine Color Urine Appearance Urine pH Ur Specific [place] Urine Protein Urine Glucose (UA) Urine Ketones Ur Blood (Man) Urine Nitrate Urine Bilirubin Urine Urobilinogen Leukocyte Esterase Rfl Urine RBC Urine WBC Ur Squamous Epith Cells Urine Bacteria Urine Casts Hyaline Casts Nasal MRSA (PCR) Influenza A (RT-PCR) Influenza B (RT-PCR) RSV (RT-PCR) SARS-CoV-2 RNA (RT-PCR) 01/18/24 01/18/24 01/18/24 18:19 18:19 18:19 WBC RBC Hgb Hct MCV MCH MCHC RDW Plt Count MPV Immature Gran % (Auto) Neut % (Auto) Lymph % (Auto) [place] % (Auto) Eos % (Auto) Baso % (Auto) Lymph # (Auto) [place] # (Auto) Eos # (Auto) Baso # (Auto) Abs Immat Gran (auto) Absolute Neuts (auto) Absolute Nucleated RBC Nucleated RBC % PT INR APTT Puncture Site ABG pH ABG pCO2 ABG pO2 ABG PO2/FiO2 Ratio ABG HCO3 ABG O2 Saturation ABG O2 Content ABG Base Excess A-a Gradient Oxyhemoglobin Carboxyhemoglobin Methemoglobin Reduced Hemoglobin Total Hemoglobin O2 Delivery Device O2 Liters/Min Vent Rate FiO2 Expiratory Pressure Inspiratory Pressure Sodium Potassium Chloride Carbon Dioxide Anion Gap BUN Creatinine Estim Creat Clear Calc Estimated GFR Glucose Lactic Acid Calcium Magnesium Total Bilirubin AST ALT 11 Alkaline Phosphatase Cancelled 85 Troponin I < 0.012 NT-Pro-B Natriuret Pep 399 H Total Protein Cancelled 8.0 Albumin Cancelled Procalcitonin Urine Color Urine Appearance Urine pH Ur Specific [place] Urine Protein Urine Glucose (UA) Urine Ketones Ur Blood (Man) Urine Nitrate Urine Bilirubin Urine Urobilinogen Leukocyte Esterase Rfl Urine RBC Urine WBC Ur Squamous Epith Cells Urine Bacteria Urine Casts Hyaline Casts Nasal MRSA (PCR) Influenza A (RT-PCR) Influenza B (RT-PCR) RSV (RT-PCR) SARS-CoV-2 RNA (RT-PCR) 01/18/24 01/18/24 01/18/24 18:19 18:50 18:58 WBC RBC Hgb Hct MCV MCH MCHC RDW Plt Count MPV Immature Gran % (Auto) Neut % (Auto) Lymph % (Auto) [place] % (Auto) Eos % (Auto) Baso % (Auto) Lymph # (Auto) [place] # (Auto) Eos # (Auto) Baso # (Auto) Abs Immat Gran (auto) Absolute Neuts (auto) Absolute Nucleated RBC Nucleated RBC % PT INR APTT Puncture Site Left radial ABG pH 7.286 L* ABG pCO2 80.2 H* ABG pO2 59.8 L ABG PO2/FiO2 Ratio 1.99 ABG HCO3 37.4 H ABG O2 Saturation 86.5 L* ABG O2 Content 16.3 ABG Base Excess 7.7 A-a Gradient 59.9 Oxyhemoglobin 87.4 L* Carboxyhemoglobin Methemoglobin Reduced Hemoglobin Total Hemoglobin 13.3 O2 Delivery Device Non-invasive vent O2 Liters/Min 0.0 Vent Rate 14 FiO2 30 Expiratory Pressure 6 Inspiratory Pressure 16 Sodium Potassium Chloride Carbon Dioxide Anion Gap BUN Creatinine Estim Creat Clear Calc Estimated GFR Glucose Lactic Acid Calcium Magnesium Total Bilirubin AST ALT Alkaline Phosphatase Troponin I NT-Pro-B Natriuret Pep Total Protein Albumin 4.2 Procalcitonin 0.3 Urine Color Urine Appearance Urine pH Ur Specific [place] Urine Protein Urine Glucose (UA) Urine Ketones Ur Blood (Man) Urine Nitrate Urine Bilirubin Urine Urobilinogen Leukocyte Esterase Rfl Urine RBC Urine WBC Ur Squamous Epith Cells Urine Bacteria Urine Casts Hyaline Casts Nasal MRSA (PCR) Influenza A (RT-PCR) Negative Influenza B (RT-PCR) Negative RSV (RT-PCR) Negative SARS-CoV-2 RNA (RT-PCR) Negative 01/18/24 01/18/24 01/19/24 19:59 23:25 03:35 WBC RBC Hgb Hct MCV MCH MCHC RDW Plt Count MPV Immature Gran % (Auto) Neut % (Auto) Lymph % (Auto) [place] % (Auto) Eos % (Auto) Baso % (Auto) Lymph # (Auto) [place] # (Auto) Eos # (Auto) Baso # (Auto) Abs Immat Gran (auto) Absolute Neuts (auto) Absolute Nucleated RBC Nucleated RBC % PT INR APTT Puncture Site ABG pH ABG pCO2 ABG pO2 ABG PO2/FiO2 Ratio ABG HCO3 ABG O2 Saturation ABG O2 Content ABG Base Excess A-a Gradient Oxyhemoglobin Carboxyhemoglobin Methemoglobin Reduced Hemoglobin Total Hemoglobin O2 Delivery Device O2 Liters/Min Vent Rate FiO2 Expiratory Pressure Inspiratory Pressure Sodium Potassium Chloride Carbon Dioxide Anion Gap BUN Creatinine 0.80 Estim Creat Clear Calc 49 Estimated GFR > 60 Glucose Lactic Acid Calcium Magnesium Total Bilirubin AST ALT Alkaline Phosphatase Troponin I 0.026 D NT-Pro-B Natriuret Pep Total Protein Albumin Procalcitonin Urine Color Dark yellow Urine Appearance Cloudy H Urine pH 5.0 Ur Specific [place] 1.022 Urine Protein 2+ H Urine Glucose (UA) Trace H Urine Ketones Trace H Ur Blood (Man) 3+ H Urine Nitrate Negative Urine Bilirubin 1+ H Urine Urobilinogen 1.0 Leukocyte Esterase Rfl Negative Urine RBC 6-10 H Urine WBC 0-5 Ur Squamous Epith Cells Occasional Urine Bacteria None seen Urine Casts >20 Hyaline Casts Present Nasal MRSA (PCR) Not detected Influenza A (RT-PCR) Influenza B (RT-PCR) RSV (RT-PCR) SARS-CoV-2 RNA (RT-PCR) 01/19/24 01/19/24 05:32 08:14 WBC RBC Hgb Hct MCV MCH MCHC RDW Plt Count MPV Immature Gran % (Auto) Neut % (Auto) Lymph % (Auto) [place] % (Auto) Eos % (Auto) Baso % (Auto) Lymph # (Auto) [place] # (Auto) Eos # (Auto) Baso # (Auto) Abs Immat Gran (auto) Absolute Neuts (auto) Absolute Nucleated RBC Nucleated RBC % PT INR APTT Puncture Site Left radial Right radial ABG pH 7.151 L* 7.249 L* ABG pCO2 117.7 H* 76.2 H* ABG pO2 159.7 H 72.2 L ABG PO2/FiO2 Ratio 3.19 2.41 ABG HCO3 40.2 H 32.6 H ABG O2 Saturation 98.3 91.3 L ABG O2 Content 22.8 H 21.0 ABG Base Excess 5.9 2.5 A-a Gradient 64.4 52.2 Oxyhemoglobin 97.9 93.3 Carboxyhemoglobin 1.1 1.4 Methemoglobin 0.2 0.1 Reduced Hemoglobin 0.8 5.2 H Total Hemoglobin 16.4 16.0 O2 Delivery Device Bipap Bipap O2 Liters/Min Director Of Architecture Not Reportable Vent Rate FiO2 50 30 Expiratory Pressure 6 6 Inspiratory Pressure 16 18 Sodium Potassium Chloride Carbon Dioxide Anion Gap BUN Creatinine Estim Creat Clear Calc Estimated GFR Glucose Lactic Acid Calcium Magnesium Total Bilirubin AST ALT Alkaline Phosphatase Troponin I NT-Pro-B Natriuret Pep Total Protein Albumin Procalcitonin Urine Color Urine Appearance Urine pH Ur Specific [place] Urine Protein Urine Glucose (UA) Urine Ketones Ur Blood (Man) Urine Nitrate Urine Bilirubin Urine Urobilinogen Leukocyte Esterase Rfl Urine RBC Urine WBC Ur Squamous Epith Cells Urine Bacteria Urine Casts Hyaline Casts Nasal MRSA (PCR) Influenza A (RT-PCR) Influenza B (RT-PCR) RSV (RT-PCR) SARS-CoV-2 RNA (RT-PCR) Hospitalist MIPS Advance Care Plan I have confirmed that the patient's Advanced Care Plan is present, code status is documented, or surrogate decision maker is listed in patient medical record.: Yes Medication Reconciliation I have utilized all available resources to obtain, update and review the patients current medications (includes all prescriptions, OTC, herbals, cannabis, and nutritional supplements).: Yes
[2024-01-19] MEDS: PRAMIPEXOLE 0.5 MG TABLET PO (16:55)
[2024-01-19] MEDS: VANCOMYCIN 1,250 MG/NS 250 ML 1,250 MG/250 ML BAG 166.67 MG IVPB (21:30)
[2024-01-20] VITALS: BP 123/76; PULSE 67; RESP 20; O2SAT 94
--- NOTE | 2024-01-20 00:26 | PC.NURSE ---
picked up by [facility] for transport to [place]
--- NOTE | 2024-01-26 20:44 | P.TS_ITS ---
Transfer Discharge Sum: Prov Provider Date of admission: 01/19/24 09:09 Primary care physician: Regina Moreno, Admitting clinician: Luis Luna MD Consults: 01/18/24 20:21 Consult to Physician Routine Comment: Consulting Provider: Darnell Alonso Reason for consultation: COPD exacerbation, hypercapnic respiratory failure, pneumonia Has provider been notified: Yes DS: Admitting Diagnosis Discharge Date 01/20/24 Admitting Diagnosis acute on chronic respiratory failure DS: Discharge Diagnosis Discharge Diagnosis (1) Acute and chronic respiratory failure with hypercapnia: Code(s): J96.22 - Acute and chronic respiratory failure with hypercapnia Status: Acute Assessment and Plan: patient has history of severe COPD and now presented with what appears to be COPD exacerbation with possible pneumonia. ABG shows hypercarbia and hypoxia ABG done this morning showed worsening with worsening CO2. I changed her IPAP to 18 and decrease the FiO2 and ABG was repeated which showed improvement. Patient otherwise is alert awake oriented and in no respiratory distress with good tidal volumes. Continue BiPAP at this time. If worsens patient may need intubation I have discussed this in detail the patient she is reluctant to get intubated but does not want to be DNI. She believes that if she goes on a ventilator she will never come off.. I have explained to her that we will try our best with BiPAP and treatment to avoid intubation but depending on her clinical condition as she deteriorated she will need intubation and mechanical ventilation . Meanwhile patient awaits transfer to [facility] continue treatment for COPD with steroids, bronchodilators BiPAP settings reviewed patient presented with elevated WBC but patient has been on steroids in the past. Patient also has cough with yellow sputum low procalcitonin level. Chest x-ray suggest infiltrates. Patient will be treated empirically for pneumonia at this time. Continue vancomycin cefepime and Levaquin to cover for healthcare associated pneumonia as patient has had history with of infection with drug- resistant bacteria as per ER physician's review of records from outside facility. Blood cultures have been sent and are pending (2) Pneumonia: Code(s): J18.9 - Pneumonia, unspecified organism Status: Acute Assessment and Plan: see above (3) COPD with exacerbation: Code(s): J44.1 - Chronic obstructive pulmonary disease with (acute) exacerbation Status: Acute Assessment and Plan: see above Transfer Discharge Sum: Med Medications Active and Home Medications: Home Medications albuterol sulfate 0.63 mg/3 mL solution for nebulization 0.63 mg inhalation DAILY 01/18/24 [History Confirmed 01/18/24] calcitriol 0.25 mcg capsule 0.25 mcg PO DAILY 01/18/24 [History Confirmed 01/18/24] ergocalciferol (vitamin D2) 1,250 mcg (50,000 unit) capsule 1,250 mcg PO WEEKLY 01/18/24 [History Confirmed 01/18/24] fluticasone fur. 200 mcg-umeclid 62.5 mcg-vilant 25 mcg inhalat.powder (Trelegy Ellipta) 1 inh inhalation DAILY 01/18/24 [History Confirmed 01/18/24] furosemide 20 mg tablet 20 mg PO DAILY 01/18/24 [History Confirmed 01/18/24] hydrocodone 5 mg-acetaminophen 325 mg tablet 1 tablet PO Q8H PRN Moderate Pain (Scale Score 5-6) 01/18/24 [History Confirmed 01/18/24] levalbuterol tartrate 45 mcg/actuation aerosol inhaler 2 puff inhalation Q6H PRN Shortness Of Breath Or Wheezing 01/18/24 [History Confirmed 01/18/24] lisinopril 20 mg tablet 20 mg PO DAILY 01/18/24 [History Confirmed 01/18/24] meclizine 25 mg tablet 25 mg PO BID 01/18/24 [History Confirmed 01/18/24] pramipexole 0.5 mg tablet 0.5 mg PO DAILY 01/18/24 [History Confirmed 01/18/24] prednisolone acetate 1 % eye drops,suspension 1 drp RIGHT EYE QID 01/18/24 [History Confirmed 01/18/24] Transfer Discharge Sum: Hosp Hospital Course Hospital course: Jade Johnson is a 73 year old female with past medical history of COPD who is on 2-3 L of oxygen at home, pneumonias, fungal infection who receives her care at [facility] presented to ER yesterday with shortness of breath. Patient states shortness of breath started day before yesterday and she called her lead pharmacy technician's office and received some prescription for medications but dyspnea was worse yesterday she was coughing and cough associated with yellowish phlegm. She denies any fever chest pain abdominal pain nausea vomiting diarrhea constipation blood in the stool blood in the urine. No chills or rigors no dysuria . All other systems were reviewed and were negative. Workup in the ER showed patient to be hypoxic and hypercarbic with ABG showing pH of 7.28 pCO2 80 and PO2 59. Lactic was 1.4. Procalcitonin level was 0.3 troponins were negative BNP 3 9 9. WBC 20.[address] patient was placed on BiPAP. She requested transfer to [facility] where she receives her care and transfer center was contacted and patient was placed on wait list as they did not have a bed time . Patient was given IV fluids and broad-spectrum antibiotics. Time Spent with Patient Time attestation: Total time spent providing and/or coordinating transfer services:45 mins Exam Narrative: lying in stretcher Const: General: comfortable, no acute distress, well developed, ill appearing, lethargic, patient obtunded, average body habitus and other (on BiPAP) Nutritional Appearance: average body habitus Orientation/consciousness: patient obtunded and lethargic HENMT: Head: normal to inspection, normocephalic and atraumatic Ears: hearing grossly normal bilaterally Face/Nose/Sinus: normal facial exam Face and sinus: normal facial exam Eyes: General: appearance normal, both eyes and all related structures Pupils: Equal, round and reactive pupils present EOM: EOMs intact bilaterally Neck: Neck: full ROM, no lymphadenopathy and no JVD Thyroid: thyroid normal Lymphatic: no lymphadenopathy noted Resp: Effort & Inspection: normal respiratory effort and other (on BiPAP) Auscultation: wheezes (isolated) and diminished lung sounds Cardio: Jugular venous distension: no JVD Rate: regular rate Rhythm: regular rhythm Heart sounds: S1 normal heart sound present and S2 normal heart sound present : General: Yes deferred Skin: Rashes: no rashes Wounds: no wounds Neuro: General: no focal motor deficits, CN's II-XI intact bilaterally, patient obtunded and Unable to assess gait Cranial nerves: Yes CN's II-XII intact bilaterally and Yes Equal, round and reactive pupils present Cognition (Neuro): abnormal cognition (obtundation) Speech: normal speech Gait exam (Neuro): Unable to assess gait Motor exam (neuro): 5/5 motor strength present throughout Extrem: General: normal to inspection, full ROM, no joint enlargement and no pedal edema Other: trace edema
== END 2024-01-20 00:40 | disposition short-term general hospital (02) | DRG 193 ==
LOC: ANHED 19:38 → ANHICU 20:49
PROVIDERS: Internal Medicine; Admitting Provider Internal Medicine; Emergency Provider Emergency Medicine; PCP Internal Medicine; Visit Provider General Practice
DX: J18.9 Pneumonia, unspecified organism (principal); J96.21 Acute and chronic respiratory failure with hypoxia; J96.22 Acute and chronic respiratory failure with hypercapnia; J44.1 Chronic obstructive pulmonary disease with (acute) exacerbation; J43.9 Emphysema, unspecified; R41.82 Altered mental status, unspecified; Z87.891 Personal history of nicotine dependence; Z99.81 Dependence on supplemental oxygen; Z87.09 Personal history of other diseases of the respiratory system
CPT/HCPCS: 36415; 36600; 71045; 80053; 81001; 82375; 82565; 82805; 83050; 83605; 83735; 83880; 84145; 84484; 85018; 85025; 85610; 85730; 87040; 87070; 87205; 87637; 87641; 93005; 94002; 94003; 94640; 96365; 96366; 96367; 96375; 99285; A9270; G0378; J0692; J1650; J1956; J2470; J2919; J3370; J7030; J7050